=== PATIENT | female | born 1965 ===

== ENCOUNTER 2022-01-24 09:12 | Emergency (ER) | payer OTHER, SELFPAY ==
--- NOTE | ~2022-01-24 | XR_ITS ---
EXAMINATION: XR CHEST CLINICAL INFORMATION: Cough, wheezing. COMPARISON: None TECHNIQUE: 2 views of the chest were obtained. FINDINGS: No significant abnormality is noted involving the heart, lungs, mediastinum, bony thorax or soft tissues. XR/XR chest 2V IMPRESSION: No acute cardiopulmonary process.
[2022-01-24 09:15] VITALS: BP 154/91; PULSE 114; RESP 24; TEMP 36.1; O2SAT 95; BMI 36.9
[2022-01-24 09:27] LABS: MANUAL DIFF FLAG NO
[2022-01-24 09:30] LABS: Basophils Absolute Auto 0.1 X10*3/uL (0.0-0.2); Basophils Percent Auto 0.7 % (0-2); Eosinophils Absolute Auto 0.6 X10*3/uL (0.0-0.4); Eosinophils Percent Auto 6.7 % (0-4); Hematocrit 46.9 % (37.0-47.0); Hemoglobin 15.7 g/dl (12.0-16.0); Imm Gran Abs Auto 0.02 X10*3/uL (0.00-0.03); Imm Gran Pct Auto 0.2 % (0.0-0.4); Lymphocytes Percent Auto 33.5 % (20-40); Mean Corpuscular HGB Conc 33.5 g/dl (31.0-35.0); Mean Corpuscular Volume 83.6 fL (80.0-98.0); Mean Platelet Volume 10.7 fL (9.4-12.3); Monocytes Percent Auto 10.7 % (2-11); Neutrophils Absolute Auto 4.3 x10*3/uL (2.0-8.3); Neutrophils Percent Auto 48.2 % (45-73); Platelet Count 201 X10*3/uL (160-400); Red Blood Count 5.61 X10*6/uL (4.20-5.50); Red Cell Distribution Width 14.9 % (11.0-16.0)
[2022-01-24 10:00] LABS: Anion Gap 18 (12-20); Calcium 9.6 mg/dL (8.4-10.2); Carbon Dioxide 20 mmol/L (22-29); Chloride 105 mmol/L (96-108); Creatinine Clr Calc Pharmacy 84.5; Estimated Glomerular Filt Rate > 60; Glucose Random 130 mg/dL (60-115); Potassium 3.9 mmol/L (3.3-5.1); Sodium 139 mmol/L (135-145)
[2022-01-24 10:01] LABS: Influenza A Negative (Negative); Influenza B2 Negative (Negative)
[2022-01-24 10:34] LABS: Blood Urea Nitrogen 12 mg/dL (9-16)
--- OUTSIDE RECORDS SUMMARY | 2022-01-24 13:56 | XMS_ITS | Continuity of Care Document ---
:1965 Author Organization [facility] Address [address] [place] [address]- Care Team Providers Name Role Phone London BORGES, Kodak Oh Primary Care Physician Encounter [facility] [place] [facility] Date(s): 01/27/21 - 02/26/21 [facility] [address] [place], [place] [address] Allergies, Adverse Reactions, Alerts Substance Reaction Severity Status doxycycline1 hives Active Spiriva Active traMADol swelling and hives Active 1hives Immunizations Given and Recorded Vaccine Date Status Refusal Reason influenza virus vaccine, inactivated1 02/04/21 Given influenza virus vaccine, inactivated 12/24/19 Recorded influenza virus vaccine, inactivated 01/01/13 Given SARS-CoV-2 (COVID-19) mRNA-1273 vaccine 07/12/20 Recorded SARS-CoV-2 (COVID-19) mRNA-1273 vaccine 06/04/20 Recorded zoster vaccine, inactivated 02/06/20 Recorded pneumococcal 13-valent vaccine 02/02/16 Recorded pneumococcal 23-valent vaccine 01/17/14 Recorded Fluzone (oldterm)2 01/05/14 Given tetanus/diphtheria/pertussis, acel(Tdap)3 02/07/13 Given tetanus/diphtheria/pertussis, acel(Tdap) 06/21/11 Recorde d hepatitis B adult vaccine 06/21/11 Recorded 1Result Comment: [facility]: [phone] Note: CDC info [id number] Note: vis given 08/02/06 Medications Acetaminophen 0 Refills, Maintenance, 08/08/19 8:53:00 EDT Start Date: 08/08/19 Status: OrderedAdult pull ups, medium Adult pull ups, medium, See Instructions, # 5 pack/packet, Refills 11, Tot. Refills 11, Maintenance,To be used during day and night for stress urinary incontinence (12 pulls up per package), 10/04/20 15:03:00 EDT, Supply, 153, cm, 10/04/20 14:34:00 E... Start Date: 10/04/20 Status: Orderedalbuterol 0.083% inhalation solution 3 mL = 2.5 mg, Inhalation, Every 6 hours, PRN for wheezing, # 60 each, 1 Refills, Maintenance, Solution, 3 mL Inhalation Every 6 hours,PRN:for wheezing Start Date: 02/21/13 Status: Orderedatorvastatin 20 mg oral tablet 1 tablet = 20 mg, By Mouth, Daily at bedtime, # 90 tablet, 0 Refills, Maintenance, 08/17/20 13:08:00EDT, Tablet, Partial fill upon patient request if the prescription is for a schedule II opioid drug. Start Date: 08/17/20 Status: OrderedBreo Ellipta 200 mcg-25 mcg/inh inhalation powder 1 puffs, Inhalation, Daily, 0 Refills, Maintenance, 05/25/18 9:49:19 EST, Powder Start Date: 05/25/18 Status: Orderedcalcium-vitamin D 600 mg-400 intl units oral tablet 1 tablet, By Mouth, 2 times a day, # 60 tablet, 5 Refills, Maintenance, 10/20/20 10:23:00 EDT, Tablet, [place], [place] - [id number], Partial fill upon patient request if the prescription is for a schedule II opioid drug., 1 tablet By... Start Date: 10/20/20 Status: OrderedcloNIDine 0.1 mg oral tablet TAKE 1 TO 2 TABLETS BY MOUTH 2 (two) times a day NEEDED Start Date: 05/25/18 Status: Ordereddiazepam 5 mg oral tablet See Instructions, 1 tab PO 1 hr. prior to procedure. May repeat x 1 on arrival to [facility] if needed., # 2 tablet, Refills 0, Tot. Refills 0, Maintenance, 11/15/20 12:49:00 EDT, Instructions Replace Required Details, Route to Pharmacy Electronically, [place]... Start Date: 11/15/20 Status: OrderedhydrALAZINE 25 mg oral tablet 25 mg, 1, tablet, By Mouth, 2 times a day, PRN, # 60 tablet, Refills 0, Maintenance, elevated BP, 08/17/20 13:08:00 EDT, Partial fill upon patient request if the prescription is for a schedule II opioid drug. Start Date: 08/17/20 Status: Orderedhydrochlorothiazide 25 mg oral tablet 25 mg, 1, tablet, By Mouth, Daily, # 30 tablet, Refills 0, Maintenance, 08/17/20 13:08:00 EDT, Partial fill upon patient request if the prescription is for a schedule II opioid drug. Start Date: 08/17/20 Status: OrderedIncruse Ellipta 62.5 mcg/inh inhalation powder 1 each, Inhalation, Every 24 hours, doses should be taken at least 24 hours apart, # 30 each, 0 Refills, Maintenance, 08/17/20 13:09:00 EDT, Powder, Partial fill upon patient request if the prescription is for a schedule II opioid drug. Start Date: 08/17/20 Status: Orderedlevothyroxine 150 mcg (0.15 mg) oral tablet 1 tablet = 150 mcg, By Mouth, Daily before breakfast, dose decrease, # 90 tablet, 1 Refills, Maintenance, 02/24/21 22:43:00 EST, Tablet, [facility] [id number], Partial fill upon patient request if the prescription is for a cooper... Start Date: 02/24/21 Status: Orderedlidocaine 4% topical film 1 patch, Topically, 2 times a day, # 12 each, 0 Refills, Maintenance, 09/28/20 13:53:00 EDT, Film, [facility] [id number], Partial fill upon patient request if the prescription is for a schedule II opioid drug., 1 patch Topical... Start Date: 09/28/20 Status: Orderedloratadine 10 mg oral tablet 10 mg, 1, tablet, By Mouth, Daily, # 30 tablet, Refills 5, Tot. Refills 5, Maintenance, 01/27/21 13:23:00 EST, Route to Pharmacy Electronically, [facility], [place] - [id number], Partial fill upon patient request if the prescription is f... Start Date: 01/27/21 Status: OrderedMetoprolol Tartrate 50 mg oral tablet 1 tablet = 50 mg, By Mouth, 2 times a day, dose increase, # 180 tablet, 1 Refills, Maintenance, 09/14/20 8:52:00 EDT, Tablet, [facility] [id number], Partial fill upon patient request if the prescription is for a schedule II op... Start Date: 09/14/20 Status: OrderedNuLYTELY with Flavor Packs oral powder for reconstitution See Instructions, Drink 240mL every 15-20 minutes until first half is gone. Repeat 6 hours prior to procedure., # 4,000 mL, 0 Refills, Maintenance, 10/21/20 12:57:00 EDT, [facility] [id number], Drink 240mL every 15-20 minutes... Start Date: 10/21/20 Status: Orderedomega-3 polyunsaturated fatty acids 1000 mg oral capsule 1 capsule = 1,000 mg, By Mouth, 2 times a day, 0 Refills, Maintenance, 08/17/20 13:09:00 EDT, Capsule, Partial fill upon patient request if the prescription is for a schedule II opioid drug. Start Date: 08/17/20 Status: Orderedomeprazole 20 mg oral delayed release tablet 1 tablet = 20 mg, By Mouth, Daily, # 30 tablet, 0 Refills, Maintenance, 08/17/20 13:08:00 EDT, CR Tablet, Partial fill upon patient request if the prescription is for a schedule II opioid drug. Start Date: 08/17/20 Status: Orderedondansetron 4 mg oral tablet, disintegrating DISSOLVE 1 TABLET ON TONGUE EVERY 8 HOURS NEEDED FOR NAUSEA Start Date: 08/17/20 Status: OrderedoxyCODONE 10 mg oral tablet 1 tablet = 10 mg, By Mouth, 2 times a day, PRN as needed for pain, # 56 tablet, 0 Refills, Maintenance, 01/03/21 16:09:00 EDT, Tablet, [facility] [id number], Partial fill upon patient request if the prescription is for a sched... Start Date: 01/03/21 Status: OrderedoxyCODONE 10 mg oral tablet See Instructions, TAKE ONE TABLET BY MOUTH two (2) times a day NEEDED FOR PAIN, # 56 tablet, 0 Refills, Maintenance, 01/31/21 17:09:00 EST, [facility] [id number], 153, cm, 01/25/21 14:26:00 EST, Height, 85.1, kg, 10/28/20... Start Date: 01/31/21 Status: OrderedP-5 Ketamine 10%,baclofen2%, cyclobenzaprine2%,Diclofenac3%,Idcpgjoykk36%,Bupivacaine2% topicalcrea P-5 Ketamine 10%,baclofen2%, cyclobenzaprine2%,Diclofenac3%,Nudsjsqmjy85%,Bupivacaine2% topicalcream, See Instructions, # 240 Gm, Refills 1, Tot. Refills 1, Maintenance, 1-3 gms (pumps) to affected area 3-4 times a day, 10/27/19 14:52:00 EDT, [facility]... Start Date: 10/27/19 Status: Orderedpregabalin 50 mg oral capsule See Instructions, TAKE ONE CAPSULE BY MOUTH EVERY MORNING AND TAKE THREE CAPSULES BY MOUTH EVERY EVENING, # 120 capsule, 0 Refills, Maintenance, 01/19/21 8:26:00 EDT, [facility] [id number], 153, cm, 11/19/20 8:43:00 EDT, [facility]... Start Date: 01/19/21 Status: Orderedpregabalin 50 mg oral capsule See Instructions, 1 cap PO qAM, 4 caps PO qHS. Dose increase. Please fill when patient next due., # 150 capsule, 1 Refills, Maintenance, 02/01/21 9:05:00 EST, [facility] [id number], 153, cm, 02/01/21 8:58:00 EST, Height, 85.1,... Start Date: 02/01/21 Status: OrderedProAir HFA Inhalation, 4 times a day, 0 Refills, Maintenance Start Date: 08/17/11 Status: OrderedSingulair 10 mg oral tablet 10 mg, 1, tablet, By Mouth, Daily before dinner, # 90 tablet, Refills 0, Tot. Refills 0, Maintenance, 10/28/20 17:37:00 EDT, Route to Pharmacy Electronically, [facility] [id number], 153, cm, 10/28/20 14:26:00 EDT, Height, 85.1... Start Date: 10/28/20 Stop Date: 01/26/21 Status: OrderedVitamin D3 50,000 intl units oral capsule 1 capsule = 50,000 International_Units, By Mouth, Every week, 0 Refills, Maintenance, 01/05/14 15:49:29 Start Date: 01/05/14 Status: OrderedWarm Air Humidifier Warm Air Humidifier, See Instructions, # 1 each, Refills 0, Tot. Refills 0, Maintenance, to be used nightly, 02/04/21 10:12:00 EST, Supply Start Date: 02/04/21 Status: Ordered Problem List Condition Effective Dates Status Health Status Informant Anxiety(Confirmed) Active Asthma(Confirmed)1 Active Bipolar disease, chronic(Confirmed) Active Chest wall pain, chronic(Confirmed)2 Active Depression(Confirmed) Active Stress incontinence of Active urine(Confirmed) GERD (gastroesophageal reflux Active disease)(Confirmed) Gadiel's thyroiditis(Confirmed) Active Hyperlipidemia(Confirmed) Active Hypertensive disorder(Confirmed) Active Obese class II(Confirmed) Active Osteoporosis(Confirmed)3 Active Severe persistent asthma(Confirmed) Active Sleep apnea-[facility] 16 cm(Confirmed) Active Vitamin D deficiency(Confirmed) Active 1pos bronchial challenge 19925c/p surgery [id number] 09/2020 Social History Social History Type Response Smoking Status 5-9 cigarettes (between 1/4 to 1/2 pack)/day in last 30 days; Interested in cessation: Yes; Other: was using the gum , didnt like the taste and only worked briefly. Using nicotine lollipops now though from [place].; entered on: 08/17/20 Sex
--- OUTSIDE RECORDS SUMMARY | 2022-01-24 13:56 | XMS_ITS | Continuity of Care Document ---
:1965 Author Organization [facility] Address [address] [place] [address]- Care Team Providers Name Role Phone Kodak Callahan MD Primary Care Physician Encounter [facility] Date(s): 08/16/21 - 08/23/21 [facility] [address] [place], [place] [address] Encounter Diagnosis Asthma exacerbation (Discharge Diagnosis) - 08/16/21 Abdominal pain (Discharge Diagnosis) - 08/16/21 Attending Physician: Kodak Callahan MD Allergies, Adverse Reactions, Alerts Substance Reaction Severity Status doxycycline1 hives Active Spiriva Active traMADol swelling and hives Active 1hives Immunizations Given and Recorded Vaccine Date Status Refusal Reason SARS-CoV-2 (COVID-19) mRNA-1273 vaccine 04/05/21 Given SARS-CoV-2 (COVID-19) mRNA-1273 vaccine 07/12/20 Recorded SARS-CoV-2 (COVID-19) mRNA-1273 vaccine 06/04/20 Recorded influenza virus vaccine, inactivated1 02/04/21 Given influenza virus vaccine, inactivated 12/24/19 Recorded influenza virus vaccine, inactivated 01/01/13 Given zoster vaccine, inactivated 02/06/20 Recorded pneumococcal 13-valent vaccine 02/02/16 Recorded pneumococcal 23-valent vaccine 01/17/14 Recorded Fluzone (oldterm)2 01/05/14 Given tetanus/diphtheria/pertussis, acel(Tdap)3 02/07/13 Given tetanus/diphtheria/pertussis, acel(Tdap) 06/21/11 Recorde d hepatitis B adult vaccine 06/21/11 Recorded 1Result Comment: [facility]: [phone] Note: CDC info [id number] Note: vis given 08/02/06 Medications acetaminophen 325 mg oral capsule 2 capsule = 650 mg, By Mouth, Every 4 hours, PRN as needed for fever, # 90 capsule, 0 Refills, Acute07/28/22 22:05:00 EDT, 07/27/21 22:04:00 EDT, Capsule, [facility] [place], [place] - [phone], Partial fill upon patient request if the prescr... Start Date: 07/27/21 Stop Date: 07/28/22 Status: Orderedalbuterol 0.083% inhalation solution 3 mL [...] a day, # 60 tablet, 5 Refills, [facility], 30, TAKE ONE TABLET BY MOUTH two (2) times a day, 153, cm, 02/15/21 16:52:00 EST, Height, 89.4, kg, 02/15/21 16:56:00 EST, Dry Weight Start Date: 04/18/21 Status: OrderedcloNIDine 0.1 mg oral tablet TAKE 1 TO 2 TABLETS BY MOUTH 2 (two) times a day NEEDED Start Date: 05/25/18 Status: OrderedhydrALAZINE 25 mg oral tablet 25 mg, 1, tablet, By Mouth, Every 8 hours, PRN, Maintenance, Blood Pressure, 07/27/21 16:44:00 EDT, Partial fill upon patient request if the prescription is for a schedule II opioid drug. Start Date: 07/27/21 Status: Orderedhydrochlorothiazide 25 mg oral tablet 25 mg, 1, tablet, By Mouth, Daily, # 30 tablet, Refills 0, Maintenance, 08/17/20 13:08:00 EDT, Partial fill upon patient request if the prescription is for a schedule II opioid drug. Start Date: 08/17/20 Status: Orderedibuprofen 200 mg oral tablet 400 mg, 2, tablet, By Mouth, Every 4 hours, PRN, # 120 tablet, Refills 0, Tot. Refills 0, Acute 07/28/22 22:05:00 EDT, for pain, 07/27/21 22:03:00 EDT, Route to Pharmacy Electronically, [facility] [place], [place] - [phone], Partial fill upon... Start Date: 07/27/21 Stop Date: 07/28/22 Status: OrderedIncruse Ellipta 62.5 mcg/inh inhalation powder 1 each, Inhalation, Every 24 hours, doses should be taken at least 24 hours apart, # 30 each, 0 Refills, Maintenance, 08/17/20 13:09:00 EDT, Powder, Partial fill upon patient request if the prescription is for a schedule II opioid drug. Start Date: 08/17/20 Status: Orderedlevothyroxine 150 mcg (0.15 mg) oral tablet 1 tablet, By Mouth, Daily before breakfast, DOSE decrease, # 90 tablet, 0 Refills, [facility], 155, cm, 08/16/21 13:46:00 EDT, Height, 90, kg, 07/27/21 21:54:00 EDT, Dry Weight Start Date: 08/23/21 Status: Orderedloratadine 10 mg oral tablet 1, tablet, By Mouth, Daily, # 30 tablet, Refills 5, Route to Pharmacy Electronically, [facility], 155, cm, 07/27/21 21:54:00 EDT, Height, 90, kg, 07/27/21 21:54:00 EDT, Dry Weight Start Date: 08/07/21 Status: OrderedMetoprolol Tartrate 50 mg oral tablet 1 tablet, By Mouth, 2 times a day, DOSE INCREASE, # 180 tablet, 1 Refills, [facility], 153, cm,02/15/21 16:52:00 EST, Height, 89.4, kg, 02/15/21 16:56:00 EST, Dry Weight Start Date: 03/21/21 Status: OrderedMiraLax oral powder for reconstitution = 17 Gm, By Mouth, 2 times a day, dissolve in water before taking titrate to 1-2 smooth bowel movements daily without straining, # 527 Gm, 1 Refills, Acute 09/14/21 13:27:00 EDT, 07/15/21 13:26:00 EDT,REC Powder, [place], [place]... Start Date: 07/15/21 Stop Date: 09/14/21 Status: Orderedomega-3 polyunsaturated fatty acids 1000 mg [...] 08/17/20 Status: OrderedoxyCODONE 10 mg oral tablet See Instructions, 1 tab PO qAM, 0.5 tab PO q afternoon, 1 tab PO qPM, # 70 tablet, 0 Refills, Maintenance, 08/08/21 19:03:00 EDT, [facility] [id number], taking increased dose due to injury, checked masspat, 08/09/21, 155, cm,... Start Date: 08/08/21 Status: Orderedpregabalin 50 mg oral capsule See Instructions, TAKE TWO CAPSULES BY MOUTH EVERY MORNING AND TAKE 5 CAPSULES BY MOUTH EVERY NIGHT AT BEDTIME dose increase, # 196 capsule, 1 Refills, Maintenance, 07/13/21 13:43:00 EDT, [facility] [id number], checked mass... Start Date: 07/13/21 Status: OrderedProAir HFA Inhalation, 4 times a day, 0 Refills, Maintenance Start Date: 08/17/11 Status: OrderedRight elbow padded sleeve Right elbow padded sleeve, See Instructions, # 1 each, Refills 0, Tot. Refills 0, Maintenance, To beworn during the day, 04/25/21 11:35:00 EST, Supply Start Date: 04/25/21 Status: OrderedSingulair 10 mg oral tablet 10 mg, 1, tablet, By Mouth, Daily before dinner, # 90 tablet, Refills 0, Tot. Refills 0, Maintenance, 10/28/20 17:37:00 EDT, Route to Pharmacy Electronically, [place], [place] - [id number], 153, cm, 10/28/20 14:26:00 EDT, Height, 85.1... [...] Health Status Informant Anxiety(Confirmed) Active Asthma(Confirmed)1 Active COPD with asthma(Confirmed) Active Bipolar disease, chronic(Confirmed) Active Chest wall pain, chronic(Confirmed)2 Active Depression(Confirmed) Active Stress incontinence of Active urine(Confirmed) GERD (gastroesophageal reflux Active disease)(Confirmed) Gadiel's thyroiditis(Confirmed) Active Hyperlipidemia(Confirmed) Active Hypertensive disorder(Confirmed) Active Obese class II(Confirmed) Active Onychomycosis(Confirmed) Active Osteoporosis(Confirmed)3 Active Severe persistent asthma(Confirmed) Active Sleep apnea-[facility] 16 cm(Confirmed) Active Uterine fibroid(Confirmed) Active Vitamin D deficiency(Confirmed) Active 1pos bronchial challenge [id number]/p surgery [id number] 09/2020 Diagnosis Diagnosis Type Effective Dates Health Clinical Infor formerly [facility] Status Service Asthma exacerbation Discharge 08/16/21 Diagnosis Abdominal pain Discharge 08/16/21 Diagnosis Vital Signs Most recent to oldest [Reference Range]: 1 Height 155 cm (08/16/21 1:46 PM) Oxygen Saturation [94-100 %] 98 % (08/16/21 1:46 PM) Pulse Rate [55-90 bpm] 105 bpm *H* (08/16/21 1:46 PM) Blood Pressure [90-138/55-84 mm Hg] 147/88 mm Hg *H* (08/16/21 1:46 PM) Temperature [96.8-100.4 DegF] 97.3 DegF (08/16/21 1:46 PM) Mode of Delivery (Oxygen) Room air (08/16/21 1:46 PM) Blood pressure sites Arm, left (08/16/21 1:46 PM) Social History Social History Type Response Smoking Status 5-9 cigarettes (between 1/4 to 1/2 pack)/day in last 30 days; Interested in cessation: Yes; Other: was using the gum , didnt like the taste and only worked briefly. Using nicotine lollipops now though from [place].; entered on: 08/17/20 Sex
--- OUTSIDE RECORDS SUMMARY | 2022-01-24 13:56 | XMS_ITS | Continuity of Care Document ---
:1965 Author Organization [facility] Address [address] [place] [address]- Care Team Providers Name Role Phone London BORGES, Kodak Oh Primary Care Physician Encounter [facility] Date(s): 08/10/21 - 09/09/21 [facility] [address] [place], [place] [address] Allergies, Adverse Reactions, Alerts Substance Reaction Severity Status doxycycline1 hives Active traMADol swelling and hives Active Spiriva Active 1hives Immunizations Given and Recorded Vaccine [...] B adult vaccine 06/21/11 Recorded 1Result Comment: [facility]: [phone] Note: CDC info [id number] Note: vis given 08/02/06 Medications acetaminophen 325 mg oral capsule 2 capsule = 650 mg, By Mouth, Every 4 hours, PRN as needed for fever, # 90 capsule, 0 Refills, Acute07/28/22 22:05:00 EDT, 07/27/21 22:04:00 EDT, Capsule, [facility] [place], [place] - [phone], Partial fill upon patient request if the [...] day, # 60 tablet, 5 Refills, [facility], 30, TAKE ONE TABLET BY MOUTH [...] 07/27/21 22:03:00 EDT, Route to Pharmacy Electronically, [place], [place] - [phone], Partial fill upon... Start Date: 07/27/21 Stop [...] DOSE decrease, # 90 tablet, 0 Refills, [facility], 155, cm, 08/16/21 13:46:00 EDT, Height, 90, kg, 07/27/21 21:54:00 EDT, Dry Weight Start Date: 08/23/21 Status: Orderedloratadine 10 mg oral tablet 1, tablet, By Mouth, Daily, # 30 tablet, Refills 5, Route to Pharmacy Electronically, [facility], 155, cm, 07/27/21 21:54:00 EDT, Height, 90, kg, 07/27/21 21:54:00 EDT, Dry Weight Start Date: 08/07/21 Status: OrderedMetoprolol Tartrate 50 mg oral tablet 1 tablet, By Mouth, 2 times a day, DOSE INCREASE, # 180 tablet, 1 Refills, [facility], 153, cm,02/15/21 16:52:00 EST, Height, 89.4, kg, 02/15/21 16:56:00 EST, Dry Weight Start Date: 03/21/21 Status: OrderedMiraLax oral powder for reconstitution = 17 Gm, By Mouth, 2 times a day, dissolve in water before taking titrate to 1-2 smooth bowel movements daily without straining, # 527 Gm, 1 Refills, Acute 09/14/21 13:27:00 EDT, 07/15/21 13:26:00 EDT,REC Powder, [place], [place]... Start Date: 07/15/21 Stop Date: 09/14/21 [...] qPM, # 70 tablet, 0 Refills, Maintenance, 09/02/21 17:08:00 EDT, [place], [place] - [id number], taking increased dose due to injury, checked masspat, 09/06/21, 155, cm,... Start Date: 09/02/21 Status: Orderedpregabalin 50 mg oral capsule See Instructions, TAKE TWO CAPSULES BY MOUTH EVERY MORNING AND TAKE 5 CAPSULES BY MOUTH EVERY NIGHT AT BEDTIME dose increase, # 196 capsule, 1 Refills, Maintenance, 07/13/21 13:43:00 EDT, [place], [place] - [id number], checked mass... Start Date: 07/13/21 Status: OrderedProAir [...] 10/28/20 17:37:00 EDT, Route to Pharmacy Electronically, [place], [place] - [id number], 153, cm, 10/28/20 14:26:00 EDT, Height, 85.1... [...] Vitamin D deficiency(Confirmed) Active 1pos bronchial challenge /p surgery [id number] 09/2020 Social History Social History Type Response Smoking Status 5-9 cigarettes (between 1/4 to 1/2 pack)/day in last 30 days; Interested in cessation: Yes; Other: was using the gum , didnt like the taste and only worked briefly. Using nicotine lollipops now though from [place].; entered on: 08/17/20 Sex
--- OUTSIDE RECORDS SUMMARY | 2022-01-24 13:56 | XMS_ITS | Continuity of Care Document ---
:1965 Author Organization [facility] Address [address] [place] [address], [address] [place] [address]- Care Team Providers Name Role Phone London BORGES, Kodak Oh Primary Care Physician [facility]counter [facility] Date(s): 10/29/20 - 12/24/20 [facility] [address], [address] [place] [address]- Attending Physician: Not on Staff, Attending MD Referring Physician: [employer], Sheri Allergies, Adverse Reactions, Alerts Substance Reaction Severity Status doxycycline1 hives Active Spiriva Active traMADol swelling and hives Active 1hives Immunizations Given and Recorded Vaccine Date Status Refusal Reason SARS-CoV-2 (COVID-19) mRNA-1273 vaccine 07/12/20 Recorded SARS-CoV-2 (COVID-19) mRNA-1273 vaccine 06/04/20 Recorded zoster vaccine, inactivated 02/06/20 Recorded influenza virus vaccine, inactivated 12/24/19 Recorded influenza virus vaccine, inactivated 01/01/13 Given pneumococcal 13-valent vaccine 02/02/16 Recorded pneumococcal 23-valent vaccine 01/17/14 Recorded Fluzone (oldterm)1 01/05/14 Given tetanus/diphtheria/pertussis, acel(Tdap)2 02/07/13 Given tetanus/diphtheria/pertussis, acel(Tdap) 06/21/11 Recorde d hepatitis B adult vaccine 06/21/11 Recorded 1Admin Note: CDC info [id number] Note: vis given 08/02/06 Medications Acetaminophen 0 [...] 5 Refills, Maintenance, 10/20/20 10:23:00 EDT, Tablet, [place], [place] - [id number], Partial fill upon patient request if the [...] May repeat x 1 on arrival to [facility] if needed., # 2 tablet, Refills 0, [...] opioid drug. Start Date: 08/17/20 Status: Orderedlevothyroxine 175 mcg (0.175 mg) oral tablet 1 tablet = 175 mcg, By Mouth, Daily, Repeat TSH level in 6-8 weeks Dose decrease, # 30 tablet, 1 Refills, Maintenance, 11/18/20 12:51:00 EDT, Tablet, [facility] [id number], Partial fill upon patient request if the prescriptio... Start Date: 11/18/20 Status: Orderedlidocaine 4% topical film 1 patch, Topically, 2 times a day, # 12 each, 0 Refills, Maintenance, 09/28/20 13:53:00 EDT, Film, [facility] [id number], Partial fill upon patient request if the prescription is for a schedule II opioid drug., 1 patch Topical... Start Date: 09/28/20 Status: Orderedloratadine 10 mg oral tablet 10 mg, 1, tablet, By Mouth, Daily, # 30 tablet, Refills 1, Tot. Refills 1, Maintenance, 12/06/20 13:03:00 EDT, Route to Pharmacy Electronically, [facility] [id number], Partial fill upon patient request if the prescription is f... Start Date: 12/06/20 Status: OrderedLyrica 25 mg oral capsule 2 capsule = 50 mg, By Mouth, 3 times a day, 0 Refills, Maintenance, 11/19/20 8:47:00 EDT, Partial fill upon patient request if the prescription is for a schedule II opioid drug. Start Date: 11/19/20 Status: OrderedMetoprolol Tartrate 50 mg oral tablet 1 tablet = 50 mg, By Mouth, 2 times a day, dose increase, # 180 tablet, 1 Refills, Maintenance, 09/14/20 8:52:00 EDT, Tablet, [facility] [id number], Partial fill upon patient request if the prescription is for a schedule II op... Start Date: 09/14/20 Status: OrderedNuLYTELY with Flavor Packs oral powder for reconstitution See Instructions, Drink 240mL every 15-20 minutes until first half is gone. Repeat 6 hours prior to procedure., # 4,000 mL, 0 Refills, Maintenance, 10/21/20 12:57:00 EDT, [facility] [id number], Drink 240mL every 15-20 minutes... Start Date: [...] pain, # 56 tablet, 0 Refills, Maintenance, 12/06/20 13:04:00 EDT, Tablet, [facility] [id number], Partial fill upon patient request if the prescription is for a sched... Start Date: 12/06/20 Status: OrderedP-5 Ketamine 10%,baclofen2%, cyclobenzaprine2%,Diclofenac3%,Waorygjvxm65%,Bupivacaine2% topicalcrea P-5 Ketamine 10%,baclofen2%, cyclobenzaprine2%,Diclofenac3%,Mhrgdedqqf24%,Bupivacaine2% topicalcream, See Instructions, # 240 Gm, Refills 1, Tot. Refills 1, Maintenance, 1-3 gms (pumps) to affected area 3-4 times a day, 10/27/19 14:52:00 EDT, Compound... Start Date: 10/27/19 Status: Orderedpregabalin 50 mg oral capsule See Instructions, 1 cap PO qAM, 3 caps PO qPM, # 120 capsule, 1 Refills, Maintenance, 11/02/20 9:11:00 EDT, [facility] [id number], 153, cm, 10/28/20 14:26:00 EDT, Height, 85.1,kg, 10/28/20 14:26:00 EDT, Dry Weight Start Date: 11/02/20 Status: OrderedProAir HFA Inhalation, 4 times a day, 0 Refills, Maintenance Start Date: 08/17/11 Status: OrderedSingulair 10 mg oral tablet 10 mg, 1, tablet, By Mouth, Daily before dinner, # 90 tablet, Refills 0, Tot. Refills 0, Maintenance, 10/28/20 17:37:00 EDT, Route to Pharmacy Electronically, [facility] [id number], 153, cm, 10/28/20 14:26:00 EDT, Height, 85.1... Start Date: 10/28/20 Stop Date: 01/26/21 Status: OrderedVitamin D3 50,000 intl units oral capsule 1 capsule = 50,000 International_Units, By Mouth, Every week, 0 Refills, Maintenance, 01/05/14 15:49:29 Start Date: 01/05/14 Status: Ordered Problem List Condition Effective Dates Status Health Status Informant Anxiety(Confirmed) Active Asthma(Confirmed)1 Active Bipolar disease, chronic(Confirmed) Active Chest wall pain, chronic(Confirmed)2 Active Depression(Confirmed) Active Stress incontinence of Active urine(Confirmed) GERD (gastroesophageal reflux Active disease)(Confirmed) Gadiel's thyroiditis(Confirmed) Active Hyperlipidemia(Confirmed) Active Hypertensive disorder(Confirmed) Active Osteoporosis(Confirmed)3 Active Severe persistent asthma(Confirmed) Active Sleep apnea-[facility] 16 cm(Confirmed) Active Vitamin D deficiency(Confirmed) Active 1pos bronchial challenge /p surgery [id number] 09/2020 Social History Social History Type Response Smoking Status 5-9 cigarettes (between 1/4 to 1/2 pack)/day in last 30 days; Interested in cessation: Yes; Other: was using the gum , didnt like the taste and only worked briefly. Using nicotine lollipops now though from [place].; entered on: 08/17/20 Sex
--- OUTSIDE RECORDS SUMMARY | 2022-01-24 13:56 | XMS_ITS | Continuity of Care Document ---
:1965 Author Organization [facility] Address [address] [place] [address]- Care Team Providers Name Role Phone Kodak Callahan MD Primary Care Physician [place] [facility] [place](s): 12/16/21 - 12/23/21 [facility] [address] [place], [place] [address] Encounter Diagnosis Brachial plexus injury, right (Discharge Diagnosis) - 12/16/21 Tinea corporis (Discharge Diagnosis) - 12/16/21 Mass of right axilla (Discharge Diagnosis) - 12/16/21 Attending Physician: Kodak Callahan MD Allergies, Adverse Reactions, Alerts Substance Reaction Severity Status doxycycline1 hives Active amoxicillin Active Spiriva Active traMADol swelling and hives Active 1hives Immunizations Given and Recorded Vaccine Date Status Refusal Reason SARS-CoV-2 (COVID-19) mRNA-1273 vaccine 04/05/21 Given SARS-CoV-2 (COVID-19) mRNA-1273 vaccine 07/12/20 Recorded SARS-CoV-2 (COVID-19) mRNA-1273 vaccine 06/04/20 Recorded influenza virus vaccine, inactivated1 02/04/21 Given influenza virus vaccine, inactivated 12/24/19 Recorded influenza virus vaccine, inactivated 01/11/19 Recorded influenza virus vaccine, inactivated 12/19/17 Recorded influenza virus vaccine, inactivated 02/22/17 Recorded influenza virus vaccine, inactivated 12/03/15 Recorded influenza virus vaccine, inactivated 12/22/14 Recorded influenza virus vaccine, inactivated 01/17/14 Recorded influenza virus vaccine, inactivated 01/01/13 Given zoster vaccine, inactivated 02/06/20 Recorded pneumococcal 13-valent vaccine 02/02/16 Recorded pneumococcal 23-valent vaccine 01/17/14 Recorded Fluzone (oldterm)2 10/20/14 Given tetanus/diphtheria/pertussis, acel(Tdap)3 02/07/13 Given tetanus/diphtheria/pertussis, acel(Tdap) 06/21/11 Recorde d hepatitis B adult vaccine 06/21/11 Recorded 1Result Comment: [facility]: [id number] Note: CDC info [id number] Note: vis given 08/02/06 Medications acetaminophen 325 mg oral capsule 2 capsule = 650 mg, By Mouth, Every 4 hours, PRN as needed for fever, # 90 capsule, 0 Refills, Acute07/28/22 22:05:00 EDT, 07/27/21 22:04:00 EDT, Capsule, [facility] [place], [place] - [id number], Partial fill upon patient request if the [...] a day, # 60 tablet, 5 Refills, [facility], 30, TAKE ONE TABLET BY MOUTH two (2) times a day, 155, cm, 08/16/21 13:46:00 EDT, Height, 90, kg, 07/27/21 21:54:00 EDT, Dry Weight Start Date: 10/19/21 Status: OrderedcloNIDine 0.1 mg oral tablet TAKE 1 TO 2 TABLETS BY MOUTH 2 (two) times a day NEEDED Start Date: 05/25/18 Status: Orderedclotrimazole 1% topical cream 1 application, Topically, 2 times a day, use until 2 days after rash resolves, # 30 Gm, 1 Refills, Acute 01/15/22 11:23:00 EDT, 12/16/21 11:23:00 EDT, Cream, [facility] [id number], Partial fill upon patient request if the pres... Start Date: 12/16/21 Stop Date: 01/15/22 Status: OrderedhydrALAZINE 25 mg oral tablet 25 [...] 07/27/21 22:03:00 EDT, Route to Pharmacy Electronically, [facility] [id number], Partial fill upon... Start Date: 07/27/21 Stop [...] DOSE decrease, # 90 tablet, 0 Refills, Maintenance, 11/23/21 14:02:00 EDT, [facility], 155, cm, 11/10/21 8:02:00 EDT, Height, 90, kg, 07/27/21 21:54:00 EDT, Dry Weight Start Date: 11/23/21 Status: Orderedloratadine 10 mg oral tablet 1, tablet, By Mouth, Daily, # 30 tablet, Refills 5, Route to Pharmacy Electronically, [facility], 155, cm, 07/27/21 21:54:00 EDT, Height, 90, kg, 07/27/21 21:54:00 EDT, Dry Weight Start Date: 08/07/21 Status: OrderedMetoprolol Tartrate 50 mg oral tablet 1 tablet, By Mouth, 2 times a day, DOSE INCREASE, # 180 tablet, 1 Refills, [facility], 153, cm,02/15/21 16:52:00 EST, Height, 89.4, kg, 02/15/21 16:56:00 EST, Dry Weight Start Date: 03/21/21 Status: OrderedMiraLax oral powder for reconstitution = 17 Gm, By Mouth, 2 times a day, dissolve in water before taking titrate to 1-2 smooth bowel movements daily without straining, # 527 Gm, 1 Refills, Maintenance, 11/29/21 8:47:00 EDT, REC Powder, [facility] [id number], Par... Start Date: 11/29/21 Status: OrderedNarcan 4 mg/0.1 mL nasal spray See Instructions, 4 mg intranasally for opiate overdose may repeat every 2 to 3 minutes until patient responds, # 2 each, 1 Refills, Soft Stop, 12/15/21 14:41:00 EDT, [facility] [id number], Partial fill upon patient reque... Start Date: 12/15/21 Status: Orderedomega-3 polyunsaturated fatty acids 1000 mg [...] 1 tablet = 10 mg, By Mouth, Every 8 hours, PRN Pain , Severe, dose increase checked masspat, # 84 tablet, 0 Refills, Maintenance, 12/07/21 10:22:00 EDT, [facility] [id number], taking increased dose due to injury, checked ma... Start Date: 12/07/21 Status: Orderedpregabalin 50 mg oral capsule See Instructions, TAKE TWO CAPSULES BY MOUTH EVERY MORNING AND TAKE 5 CAPSULES BY MOUTH EVERY NIGHT AT BEDTIME checked masspat, # 196 capsule, 1 Refills, Maintenance, 10/25/21 13:12:00 EDT, [facility] [id number], 155, cm, 0... Start Date: 10/25/21 Status: OrderedProAir HFA Inhalation, 4 times a [...] 10/28/20 17:37:00 EDT, Route to Pharmacy Electronically, [facility] [id number], 153, cm, 10/28/20 14:26:00 EDT, Height, 85.1... [...] Date: 02/04/21 Status: Ordered Problem List Condition Confirmation Course Effective Dates Status Health I nformant Status Anxiety Confirmed Active Asthma1 Confirmed Active COPD with asthma Confirmed Active Bipolar disease, Confirmed Active chronic Chest wall pain, Confirmed Active chronic2 Depression Confirmed Active Stress incontinence Confirmed Active of urine GERD Confirmed Active (gastroesophageal reflux disease) Gadiel's Confirmed Active thyroiditis Hyperlipidemia Confirmed Active Hypertensive disorder Confirmed Active Obese class II Confirmed Active Onychomycosis Confirmed Active Osteoporosis3 Confirmed Active Severe persistent Confirmed Active asthma Sleep apnea-[facility] Confirmed Active 16 cm Uterine fibroid Confirmed Active Vitamin D deficiency Confirmed Active 1pos bronchial challenge /p surgery [id number] 09/2020 Diagnosis Diagnosis Type Effective Dates Health Status Clinical In formant Service Brachial plexus Discharge 12/16/21 injury, right Diagnosis Tinea corporis Discharge 12/16/21 Diagnosis Mass of right Discharge 12/16/21 axilla Diagnosis Vital Signs Most recent to oldest [Reference Range]: 1 Height 155 cm (12/16/21 11:03 AM) Weight 90.7 kg (12/16/21 11:03 AM) Oxygen Saturation [94-100 %] 100 % (12/16/21 11:03 AM) Pulse Rate [55-90 bpm] 80 bpm (12/16/21 11:03 AM) Body Mass Index [18.5-24.99 kg/m2] 37.75 kg/m2 *>HHI* (12/16/21 11:03 AM) Blood Pressure [90-138/55-84 mm Hg] 125/86 mm Hg (12/16/21 11:03 AM) Temperature [96.8-100.4 DegF] 96.6 DegF *L* (12/16/21 11:03 AM) Blood pressure sites Arm, left (12/16/21 11:03 AM) Temperature Route Temporal (12/16/21 11:03 AM) Dry Weight 90.7 kg (12/16/21 11:03 AM) Weight Obtained Via Standing scale (12/16/21 11:03 AM) Social History Social History Type Response Smoking Status 5-9 cigarettes (between 1/4 to 1/2 pack)/day in last 30 days; Interested in cessation: Yes; Other: was using the gum , didnt like the taste and only worked briefly. Using nicotine lollipops now though from [place].; entered on: 08/17/20 Sex Patient Care team information PersonnelName: London BORGES, Kodak Oh Address: Address: [address] [place], [place] [address]
--- OUTSIDE RECORDS SUMMARY | 2022-01-24 13:56 | XMS_ITS | Continuity of Care Document ---
:[address] [facility] Address [address] [place] [address]- Care Team Providers Name Role Phone London BORGES, oKdak Oh Primary Care Physician [facility] Date[facility]s): 12/14/21 - 01/13/22 [facility] [address] [place], [place] [address] Allergies, Adverse Reactions, Alerts Substance Reaction Severity Status doxycycline1 hives Active Spiriva Active traMADol swelling and hives Active amoxicillin Active 1hives Immunizations Given and Recorded Vaccine [...] B adult vaccine 06/21/11 Recorded 1Result Comment: [facility]: [id number] Note: [facility] info [id number] Note: vis given 08/02/06 Medications acetaminophen 325 mg oral capsule 2 capsule = 650 mg, By Mouth, Every 4 hours, PRN as needed for fever, # 90 capsule, 0 Refills, Acute07/28/22 22:05:00 EDT, 07/27/21 22:04:00 EDT, Capsule, [facility] - [place], [place] - [id number], Partial fill upon patient request if the [...] a day, # 60 tablet, 5 Refills, [facility], 30, TAKE ONE TABLET [...] until 2 days after rash resolves, # 60 Gm, 1 Refills, Acute 02/26/22 15:46:00 EST, 01/15/22 11:23:00 EDT, Cream, [facility] [place] [facility] [place], [place] - [id number], Partial fill upon patient request if the pres... Start Date: 01/15/22 Stop Date: 02/26/22 Status: OrderedhydrALAZINE 25 mg oral tablet 25 [...] tablet, 0 Refills, Maintenance, 11/23/21 14:02:00 EDT, [facility] [place], 155, cm, 11/10/21 8:02:00 EDT, Height, 90, kg, 07/27/21 21:54:00 EDT, Dry Weight Start Date: 11/23/21 Status: Orderedloratadine 10 mg oral tablet 1, tablet, By Mouth, Daily, # 30 tablet, Refills 5, Route to Pharmacy Electronically, [facility] [place], 155, cm, 07/27/21 21:54:00 EDT, Height, 90, kg, 07/27/21 21:54:00 EDT, Dry Weight Start Date: 08/07/21 Status: OrderedMetoprolol Tartrate 50 mg oral tablet 1 tablet, By Mouth, 2 times a day, DOSE INCREASE, # 180 tablet, 1 Refills, [facility] [place], 153, cm,02/15/21 16:52:00 EST, Height, 89.4, kg, 02/15/21 16:56:00 EST, Dry Weight Start Date: 03/21/21 Status: OrderedMiraLax oral powder for reconstitution = 17 Gm, By Mouth, 2 times a day, dissolve in water before taking titrate to 1-2 smooth bowel movements daily without straining, # 527 Gm, 1 Refills, Maintenance, 11/29/21 8:47:00 EDT, REC Powder, [facility] [id number], Par... Start Date: 11/29/21 Status: OrderedNarcan 4 mg/0.1 mL nasal spray See Instructions, 4 mg intranasally for opiate overdose may repeat every 2 to 3 minutes until patient responds, # 2 each, 1 Refills, Soft Stop, 12/15/21 14:41:00 EDT, [facility] [id number], Partial fill upon patient reque... Start Date: 12/15/21 Status: Orderedomeprazole 20 mg oral delayed release [...] Every 8 hours, PRN Pain , Severe, checked masspat, # 84 tablet, 0 Refills, Maintenance, 01/03/22 17:25:00 EDT, [facility] [id number], taking increased dose due to injury, checked masspat, 01/04/22,... Start Date: 01/03/22 Status: Orderedpregabalin 50 mg oral capsule See Instructions, TAKE TWO CAPSULES BY MOUTH EVERY MORNING AND TAKE 5 CAPSULES BY MOUTH EVERY NIGHT AT BEDTIME checked masspat, # 196 capsule, 1 Refills, Maintenance, 10/25/21 13:12:00 EDT, [facility] [id number], 155, cm, 0... Start Date: 10/25/21 Status: [...] 10/28/20 17:37:00 EDT, Route to Pharmacy Electronically, [place], [place] - [id number], 153, cm, 10/28/20 14:26:00 EDT, Height, 85.1... [...] Active Severe persistent Confirmed Active asthma Sleep apnea-[facility] Confirmed Active 16 cm Uterine fibroid Confirmed Active Vitamin D deficiency Confirmed Active 1pos bronchial challenge /p surgery [id number] 09/2020 Social History Social History Type Response Smoking Status 5-9 cigarettes (between 1/4 to 1/2 pack)/day in last 30 days; Interested in cessation: Yes; Other: was using the gum , didnt like the taste and only worked briefly. Using nicotine lollipops now though from [place].; entered on: 08/17/20 Sex Patient Care team information PersonnelName: Kodak Callahan MD Address: Address: [address] [place] [address]-
--- OUTSIDE RECORDS SUMMARY | 2022-01-24 13:56 | XMS_ITS | Continuity of Care Document ---
:1965 Author Organization [facility] Address [address] [place] [address]- Care Team Providers Name Role Phone Sarah Sanderson Primary Care Physician [place] [facility] [place] 01/24/20 [facility] [address] [place] [id number] Allergies, Adverse Reactions, Alerts Substance Reaction Severity Status doxycycline1 hives Active Spiriva Active traMADol swelling and hives Active 1hives Immunizations Given and Recorded Vaccine Date Status Refusal Reason Fluzone (oldterm)1 01/05/14 Given tetanus/diphtheria/pertussis, acel(Tdap)2 02/07/13 Given influenza virus vaccine, inactivated 01/01/13 Given 1Admin Note: CDC info [id number] Note: vis given 08/02/06 Medications Acetaminophen 0 Refills, Maintenance, 08/08/19 8:53:00 EDT Start Date: 08/08/19 Status: Orderedalbuterol 0.083% inhalation solution 3 mL = 2.5 mg, Inhalation, Every 6 hours, PRN for wheezing, # 60 each, 1 Refills, Maintenance, Solution, 3 mL Inhalation Every 6 hours,PRN:for wheezing Start Date: 02/21/13 Status: OrderedBenadryl 25 mg oral capsule 1 capsule = 25 mg, By Mouth, 3 times a day, PRN for itching, may cause drowsiness, # 30 capsule, 1 Refills, Maintenance, Capsule, 1 capsule By Mouth 3 times a day,PRN:for itching,Instr:may cause drowsiness Start Date: 02/21/13 Status: OrderedBreo Ellipta 200 mcg-25 mcg/inh inhalation powder 1 puffs, Inhalation, Daily, 0 Refills, Maintenance, 05/25/18 9:49:19 EST, Powder Start Date: 05/25/18 Status: Orderedbudesonide-formoterol 160 mcg-4.5 mcg/inh inhalation aerosol with adapter 2, puffs, Inhalation, 2 times a day, # 6 Gm, Refills 2, Tot. Refills 2, Maintenance, 05/27/18 11:11:30 EDT, Inhaler, Route to Pharmacy Electronically, [id number], [facility]/pharmacy#[id number] Start Date: 05/27/18 Stop Date: 02/21/19 Status: OrderedcloNIDine 0.1 mg oral tablet TAKE 1 TO 2 TABLETS BY MOUTH 2 (two) times a day NEEDED Start Date: 05/25/18 Status: Orderedcyclobenzaprine 10 mg oral tablet 1 tablet = 10 mg, By Mouth, 3 times a day, PRN for spasm, May cause drowsiness, # 30 tablet, 0 Refills, Maintenance, 05/20/13 11:11:06, Tablet Start Date: 05/20/13 Status: Orderedgabapentin 300 mg oral capsule 300 mg, 1, capsule, By Mouth, 3 times a day, # 90 capsule, Refills 0, Maintenance, 05/25/18 1:44:31 EST Start Date: 05/25/18 Status: OrderedIbuprofen Refills 0, Maintenance, 08/08/19 8:53:00 EDT Start Date: 08/08/19 Status: OrderedLevothyroxine = 225 mcg, By Mouth, Daily, 0 Refills, Maintenance, 08/17/11 13:10:06 EDT Start Date: 08/17/11 Status: Orderedloratadine 10 mg oral tablet 1 tablet = 10 mg, By Mouth, Daily, 0 Refills, Maintenance, 01/05/14 15:49:05 Start Date: 01/05/14 Status: OrderedP-5 Ketamine 10%,baclofen2%, cyclobenzaprine2%,Diclofenac3%,Lzdlmwinbv54%,Bupivacaine2% topicalcrea P-5 Ketamine 10%,baclofen2%, cyclobenzaprine2%,Diclofenac3%,Reejiapajf20%,Bupivacaine2% topicalcream, See Instructions, # 240 Gm, Refills 1, Tot. Refills 1, Maintenance, 1-3 gms (pumps) to affected area 3-4 times a day, 10/27/19 14:52:00 EDT, Compound... Start Date: 10/27/19 Status: OrderedProAir HFA Inhalation, 4 times a day, 0 Refills, Maintenance Start Date: 08/17/11 Status: OrderedProtonix 40 mg oral delayed release tablet 1 tablet = 40 mg, By Mouth, 2 times a day, # 60 tablet, 0 Refills, Maintenance, 06/09/13 19:28:43, EC Tablet, 1 tablet By Mouth 2 times a day,x30 days Start Date: 06/09/13 Stop Date: 07/09/13 Status: OrderedSeroquel 300 mg oral tablet 1 tablet = 300 mg, By Mouth, Daily at bedtime, 0 Refills, Maintenance Start Date: 08/17/11 Status: OrderedSingulair 10 mg oral tablet 1 tablet = 10 mg, By Mouth, Daily before dinner, # 90 tablet, 0 Refills, Maintenance, 01/28/14 11:39:03, Tablet, 1 tablet By Mouth Daily before dinner,x90 days Start Date: 01/28/14 Stop Date: 04/28/14 Status: OrderedVitamin D3 50,000 intl units oral capsule 1 capsule = 50,000 International_Units, By Mouth, Every week, 0 Refills, Maintenance, 01/05/14 15:49:29 Start Date: 01/05/14 Status: OrderedZocor 20 mg oral tablet 1 tablet = 20 mg, By Mouth, Daily at bedtime, 0 Refills, Maintenance Start Date: 08/17/11 Status: OrderedZoloft 25 mg oral tablet 3 tablet = 75 mg, By Mouth, Daily, # 90 tablet, 0 Refills, Maintenance, 05/25/18 9:54:13 EST, Tablet Start Date: 05/25/18 Status: Ordered Problem List Condition Effective Dates Status Health Status Informant Asthma(Confirmed)1 Active Depression(Confirmed) Active GERD (gastroesophageal reflux Active disease)(Confirmed) Gadiel's thyroiditis(Confirmed) Active Hyperlipidemia(Confirmed) Active Hypertensive disorder(Confirmed) Active Sleep apnea-[facility] 16 cm(Confirmed) Active Vitamin D deficiency(Confirmed) Active 1pos bronchial challenge 2012 Social History Social History Type Response Smoking Status Former smoker; Other: pt sta kalyan she quit smoking 1 year and 10 months ago; entered on: 01/05/14 Sex
--- OUTSIDE RECORDS SUMMARY | 2022-01-24 13:56 | XMS_ITS | Continuity of Care Document ---
:[address] [facility] Address [address] [place] [address]- Care Team Providers Name Role Phone London BORGES, Kodak Oh Primary Care Physician Encounter [facility] Date(s): 10/28/20 - 11/04/20 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 Start Date: 10/20/20 Status: OrderedcloNIDine 0.1 mg oral tablet TAKE 1 TO 2 TABLETS BY MOUTH 2 (two) times a day NEEDED Start Date: 05/25/18 Status: Orderedgabapentin 300 mg oral capsule See Instructions, 3 caps PO BID and 4 caps PO qHS, Refills 0, Maintenance, 05/25/18 1:44:31 EST, Instructions Replace Required Details Start Date: 05/25/18 Status: OrderedhydrALAZINE 25 mg [...] opioid drug. Start Date: 08/17/20 Status: Orderedlevothyroxine 200 mcg (0.2 mg) oral capsule 1 capsule = 200 mcg, By Mouth, Daily in AM, Dose decrease, # 30 capsule, 1 Refills, Maintenance, 09/16/20 14:31:00 EDT, Capsule, [facility] [id number], Partial fill upon patient request if the prescription is for a schedule II... Start Date: 09/16/20 Status: Orderedlidocaine 4% topical film 1 patch, Topically, 2 times a day, # 12 each, 0 Refills, Maintenance, 09/28/20 13:53:00 EDT, Film, [facility] [id number], Partial fill upon patient request if the prescription is for a schedule II opioid drug., 1 patch Topical... Start Date: 09/28/20 Status: Orderedloratadine 10 mg oral tablet 1 tablet = 10 mg, By Mouth, Daily, 0 Refills, Maintenance, 01/05/14 15:49:05 Start Date: 01/05/14 Status: OrderedMetoprolol Tartrate 50 mg oral tablet 1 tablet = 50 mg, By Mouth, 2 times a day, dose increase, # 180 tablet, 1 Refills, Maintenance, 09/14/20 8:52:00 EDT, Tablet, [facility] [id number], Partial fill upon patient request if the prescription is for a schedule II op... Start Date: 09/14/20 Status: OrderedNuLYTELY with Flavor Packs oral powder for reconstitution See Instructions, Drink 240mL every 15-20 minutes until first half is gone. Repeat 6 hours prior to procedure., # 4,000 mL, 0 Refills, Maintenance, 10/21/20 12:57:00 EDT, [facility] [id number], Drink 240mL every 15-20 minutes... Start Date: [...] pain, # 56 tablet, 0 Refills, Maintenance, 11/03/20 7:21:00 EDT, Tablet, [facility] [id number], Partial fill upon patient request if the prescription is for a schedu... Start Date: 11/03/20 Status: OrderedP-5 Ketamine 10%,baclofen2%, cyclobenzaprine2%,Diclofenac3%,Rdybdfqoxl13%,Bupivacaine2% topicalcrea P-5 Ketamine 10%,baclofen2%, cyclobenzaprine2%,Diclofenac3%,Rhvscaokvl66%,Bupivacaine2% topicalcream, See Instructions, # 240 Gm, Refills 1, Tot. Refills 1, Maintenance, 1-3 gms (pumps) to affected area 3-4 times a day, 10/27/19 14:52:00 EDT, Compound... Start Date: 10/27/19 Status: Orderedpregabalin 50 mg oral capsule See Instructions, 1 cap PO qAM, 3 caps PO qPM, # 120 capsule, 1 Refills, Maintenance, 11/02/20 9:11:00 EDT, [place], [place] - [id number], 153, cm, 10/28/20 14:26:00 EDT, Height, 85.1,kg, 10/28/20 14:26:00 EDT, Dry Weight Start Date: 11/02/20 Status: OrderedProAir HFA Inhalation, 4 times a day, 0 Refills, Maintenance Start Date: 08/17/11 Status: OrderedSingulair 10 mg oral tablet 10 mg, 1, tablet, By Mouth, Daily before dinner, # 90 tablet, Refills 0, Tot. Refills 0, Maintenance, 10/28/20 17:37:00 EDT, Route to Pharmacy Electronically, [place], [place] - [id number], 153, cm, 10/28/20 14:26:00 EDT, Height, 85.1... [...] Vitamin D deficiency(Confirmed) Active 1pos bronchial challenge 70123t/p surgery [id number] 09/2020 Diagnosis Diagnosis Type Effective Dates Health Clinical Infor mant Status Service Asthma Discharge 10/28/20 Diagnosis Gadiel's Discharge 10/28/20 thyroiditis Diagnosis Health care Discharge 10/28/20 maintenance Diagnosis Vital Signs Most recent to oldest [Reference Range]: 1 Height 153 cm (10/28/20 2:26 PM) Weight 85.1 kg (10/28/20 2:26 PM) Oxygen Saturation [94-100 %] 100 % (10/28/20 2:26 PM) Pulse Rate [55-90 bpm] 91 bpm *H* (10/28/20 2:26 PM) Body Mass Index [18.5-24.99] 36.35 *>HHI* (10/28/20 2:26 PM) Blood Pressure [90-138/55-84 mm Hg] 130/86 mm Hg (10/28/20 2:26 PM) Respiratory Rate [16-30 br/min] 16 br/min (10/28/20 2:26 PM) Temperature [96.8-100.4 DegF] 99.0 DegF (10/28/20 2:26 PM) Mode of Delivery (Oxygen) Room air (10/28/20 2:26 PM) Blood pressure sites Arm, left (10/28/20 2:26 PM) Temperature Route Temporal (10/28/20 2:26 PM) Dry Weight 85.1 kg (10/28/20 2:26 PM) Weight Obtained Via Standing scale (10/28/20 2:26 PM) Social History Social History Type Response Smoking Status 5-9 cigarettes (between 1/4 to 1/2 pack)/day in last 30 days; Interested in cessation: Yes; Other: was using the gum , didnt like the taste and only worked briefly. Using nicotine lollipops now though from [place].; entered on: 08/17/20 Sex
--- OUTSIDE RECORDS SUMMARY | 2022-01-24 13:56 | XMS_ITS | Continuity of Care Document ---
:1965 Author Organization [facility] Address [address] [place] [address]- Care Team Providers Name Role Phone Kodak Callahan MD Primary Care Physician Encounter [facility] Date(s): 04/29/21 - 05/06/21 [facility] [address] [place] [address]- Encounter Diagnosis Cellulitis (Discharge Diagnosis) - 04/30/21 Onychomycosis (Discharge Diagnosis) - 04/30/21 Attending Physician: Kodak Callahan MD Allergies, Adverse [...] B adult vaccine 06/21/11 Recorded 1Result Comment: [facility]: [id number] Note: CDC info [id number] Note: vis given 08/02/06 Medications Adult pull ups, medium Adult pull ups, medium, [...] 6 hours,PRN:for wheezing Start Date: 02/21/13 Status: OrderedAntibiotics for cellulitis Antibiotics for cellulitis, Refills 0, Maintenance, 04/29/21 8:58:00 EST, Supply Start Date: 04/29/21 Status: Orderedatorvastatin 20 mg oral tablet 1 [...] a day, # 60 tablet, 5 Refills, [facility], 30, TAKE ONE TABLET BY MOUTH two (2) times a day, 153, cm, 02/15/21 16:52:00 EST, Height, 89.4, kg, 02/15/21 16:56:00 EST, Dry Weight Start Date: 04/18/21 Status: Orderedcephalexin monohydrate 500 mg oral capsule TAKE ONE CAPSULE BY MOUTH EVERY 6 HOURS Start Date: 04/29/21 Status: OrderedcloNIDine 0.1 mg oral tablet TAKE 1 TO 2 TABLETS BY MOUTH 2 (two) times a day NEEDED Start Date: 05/25/18 Status: Ordereddiazepam 5 mg oral tablet See Instructions, 1 tab PO 1 hr. prior to procedure. May repeat x 1 on arrival to [facility] if needed., # 2 tablet, Refills 0, [...] 1 Refills, Maintenance, 02/24/21 22:43:00 EST, Tablet, [facility] [id number], Partial fill upon patient request if the prescription is for a cooper... Start Date: 02/24/21 Status: Orderedlidocaine 4% topical film 1 patch, Topically, 2 times a day, # 12 each, 0 Refills, Maintenance, 09/28/20 13:53:00 EDT, Film, [facility] [id number], Partial fill upon patient request if the prescription is for a schedule II opioid drug., 1 patch Topical... Start Date: 09/28/20 Status: Orderedloratadine 10 mg oral tablet 10 mg, 1, tablet, By Mouth, Daily, # 30 tablet, Refills 5, Tot. Refills 5, Maintenance, 01/27/21 13:23:00 EST, Route to Pharmacy Electronically, [facility] [id number], Partial fill upon patient request if the prescription is f... Start Date: 01/27/21 Status: OrderedMetoprolol Tartrate 50 mg oral tablet 1 tablet, By Mouth, 2 times a day, DOSE INCREASE, # 180 tablet, 1 Refills, [facility], 153, cm,02/15/21 16:52:00 EST, Height, 89.4, kg, 02/15/21 16:56:00 EST, Dry Weight Start Date: 03/21/21 Status: OrderedNuLYTELY with Flavor Packs oral powder for reconstitution See Instructions, Drink 240mL every 15-20 minutes until first half is gone. Repeat 6 hours prior to procedure., # 4,000 mL, 0 Refills, Maintenance, 10/21/20 12:57:00 EDT, [place], [place] - [id number], Drink 240mL every 15-20 minutes... Start Date: [...] tablet See Instructions, 1 tab PO qAM, 1/2 tab PO q3pm, 1 tab PO qPM. Temporary dose increase for this month, # 70 tablet, 0 Refills, Maintenance, 04/19/21 22:08:00 EST, [facility] [id number], 153, cm, 02/15/21 16:52:00 EST, Height,... Start Date: 04/19/21 Status: OrderedP-5 Ketamine 10%,baclofen2%, cyclobenzaprine2%,Diclofenac3%,Djxuopaxtc95%,Bupivacaine2% topicalcrea P-5 Ketamine 10%,baclofen2%, cyclobenzaprine2%,Diclofenac3%,Amnakyejtr41%,Bupivacaine2% topicalcream, See Instructions, # 240 Gm, Refills 1, Tot. Refills 1, Maintenance, 1-3 gms (pumps) to affected area 3-4 times a day, 10/27/19 14:52:00 EDT, Compound... Start Date: 10/27/19 Status: Orderedpregabalin 50 mg oral capsule See Instructions, 1 cap PO qAM and 5 caps PO qHS. Dose increase., # 180 capsule, 1 Refills, Maintenance, 04/18/21 22:56:00 EST, [facility] [id number], 153, cm, 02/15/21 16:52:00 EST, Height, 89.4, kg, 02/15/21 16:56:00 EST, . Start Date: 04/18/21 Status: OrderedProAir HFA Inhalation, 4 times a day, 0 Refills, Maintenance Start Date: 08/17/11 Status: OrderedRight elbow padded sleeve Right elbow padded sleeve, See Instructions, # 1 each, Refills 0, Tot. Refills 0, Maintenance, To beworn during the day, 04/25/21 11:35:00 EST, Supply Start Date: 04/25/21 Status: OrderedRight neutral wrist splint Right neutral wrist splint, See Instructions, # 1 each, Refills 0, Tot. Refills 0, Maintenance, To be used at night and when able during the day, 04/25/21 11:36:00 EST, Supply Start Date: 04/25/21 Status: OrderedSingulair 10 mg oral tablet 10 mg, 1, tablet, By Mouth, Daily before dinner, # 90 tablet, Refills 0, Tot. Refills 0, Maintenance, 10/28/20 17:37:00 EDT, Route to Pharmacy Electronically, [facility] [place], [place] - [id number], 153, cm, 10/28/20 14:26:00 EDT, Height, 85.1... [...] deficiency(Confirmed) Active 1pos bronchial challenge /p surgery [id number] 09/2020 Diagnosis Diagnosis Type Effective Dates Health Status Clinical In formant Service Cellulitis Discharge 04/30/21 Diagnosis Onychomycosis Discharge 04/30/21 Diagnosis Vital Signs Most recent to oldest [Reference Range]: 1 Height 153 cm (04/29/21 9:27 AM) Weight 88.8 kg (04/29/21 9:27 AM) Oxygen Saturation [94-100 %] 96 % (04/29/21 9:27 AM) Pulse Rate [55-90 bpm] 83 bpm (04/29/21 9:27 AM) Body Mass Index [18.5-24.99] 37.93 *>HHI* (04/29/21 9:27 AM) Blood Pressure [90-138/55-84 mm Hg] 129/89 mm Hg (04/29/21 9:27 AM) Temperature [96.8-100.4 DegF] 98.3 DegF (04/29/21 9:27 AM) Blood pressure sites Arm, left (04/29/21 9:27 AM) Temperature Route Temporal (04/29/21 9:27 AM) Dry Weight 88.8 kg (04/29/21 9:27 AM) Weight Obtained Via Standing scale (04/29/21 9:27 AM) Social History Social History Type Response Smoking Status 5-9 cigarettes (between 1/4 to 1/2 pack)/day in last 30 days; Interested in cessation: Yes; Other: was using the gum , didnt like the taste and only worked briefly. Using nicotine lollipops now though from [place].; entered on: 08/17/20 Sex
--- OUTSIDE RECORDS SUMMARY | 2022-01-24 13:56 | XMS_ITS | Continuity of Care Document ---
:1965 Author Organization [facility] Address [address] [place] [address]- Care Team Providers Name Role Phone London BORGES, Kodak Oh Primary Care Physician Encounter [facility] Date(s): 10/10/21 - 11/09/21 [facility] [address] [place], [place] [address] Allergies, Adverse Reactions, Alerts Substance Reaction [...] adult vaccine 06/21/11 Recorded 1Result Comment: [facility]: [phone] Note: [facility] info [id number] Note: vis given 08/02/06 Medications acetaminophen 325 mg oral capsule 2 capsule = 650 mg, By Mouth, Every 4 hours, PRN as needed for fever, # 90 capsule, 0 Refills, Acute07/28/22 22:05:00 EDT, 07/27/21 22:04:00 EDT, Capsule, [facility] [place], [place] - [id number], Partial fill upon patient request if the [...] a day, # 60 tablet, 5 Refills, [facility], 30, TAKE ONE TABLET BY [...] 07/27/21 22:03:00 EDT, Route to Pharmacy Electronically, [place], [place] - [id number], Partial fill upon... Start Date: 07/27/21 Stop [...] DOSE decrease, # 90 tablet, 0 Refills, [facility], 155, cm, 08/16/21 13:46:00 EDT, Height, 90, kg, 07/27/21 21:54:00 EDT, Dry Weight Start Date: 08/23/21 Status: Orderedloratadine 10 mg oral tablet 1, tablet, By Mouth, Daily, # 30 tablet, Refills 5, Route to Pharmacy Electronically, [facility], 155, cm, 07/27/21 21:54:00 EDT, Height, 90, kg, 07/27/21 21:54:00 EDT, Dry Weight Start Date: 08/07/21 Status: OrderedMetoprolol Tartrate 50 mg oral tablet 1 tablet, By Mouth, 2 times a day, DOSE INCREASE, # 180 tablet, 1 Refills, [facility], 153, cm,02/15/21 16:52:00 EST, Height, 89.4, kg, 02/15/21 16:56:00 EST, Dry Weight Start Date: 03/21/21 Status: Orderedomega-3 polyunsaturated fatty acids 1000 mg [...] qPM, # 70 tablet, 0 Refills, Maintenance, 11/08/21 8:44:00 EDT, [facility] [id number], taking increased dose due to injury, checked massnvt, 11/09/21, 155, cm, 0... Start Date: 11/08/21 Status: Orderedpregabalin 50 mg oral capsule See Instructions, TAKE TWO CAPSULES BY MOUTH EVERY MORNING AND TAKE 5 CAPSULES BY MOUTH EVERY NIGHT AT BEDTIME checked masspat, # 196 capsule, 1 Refills, Maintenance, 10/25/21 13:12:00 EDT, [place], [place] - [id number], 155, cm, 0... Start Date: 10/25/21 Status: [...] 10/28/20 17:37:00 EDT, Route to Pharmacy Electronically, [place], [place] - [id number], 153, cm, 10/28/20 14:26:00 EDT, Height, 85.1... [...] deficiency(Confirmed) Active 1pos bronchial challenge /p surgery [id number] 09/2020 Social History Social History Type Response Smoking Status 5-9 cigarettes (between 1/4 to 1/2 pack)/day in last 30 days; Interested in cessation: Yes; Other: was using the gum , didnt like the taste and only worked briefly. Using nicotine lollipops now though from [place].; entered on: 08/17/20 Sex
--- OUTSIDE RECORDS SUMMARY | 2022-01-24 13:56 | XMS_ITS | Continuity of Care Document ---
:1965 Author Organization [facility] Address [address] [place] [address]- Care Team Providers Name Role Phone Kodak Callahan MD Primary Care Physician Encounter [facility] Date(s): 10/21/20 - 11/20/20 [facility] [address] [place] [address]- Attending Physician: Carlin Adams Admitting Physician: Carlin Adams Referring Physician: Carlin Adams Allergies, Adverse Reactions, Alerts Substance Reaction Severity [...] vaccine 06/21/11 Recorded 1Admin Note: CDC info [id number] Note: vis given 08/02/06 Medications Acetaminophen 0 [...] 5 Refills, Maintenance, 10/20/20 10:23:00 EDT, Tablet, [place], [place] - [id number], Partial fill upon patient request if the [...] May repeat x 1 on arrival to [facility] if needed., # 2 tablet, Refills 0, [...] 1 Refills, Maintenance, 11/18/20 12:51:00 EDT, Tablet, [place], [place] - [id number], Partial fill upon patient request if the prescriptio... Start Date: 11/18/20 Status: Orderedlidocaine 4% topical film 1 patch, Topically, 2 times a day, # 12 each, 0 Refills, Maintenance, 09/28/20 13:53:00 EDT, Film, [place], [place] - [id number], Partial fill upon patient request if the prescription is for a schedule II opioid drug., 1 patch Topical... Start Date: 09/28/20 Status: Orderedloratadine 10 mg oral tablet 1 tablet = 10 mg, By Mouth, Daily, 0 Refills, Maintenance, 01/05/14 15:49:05 Start Date: 01/05/14 Status: OrderedLyrica 25 mg oral capsule 2 [...] 1 Refills, Maintenance, 09/14/20 8:52:00 EDT, Tablet, [facility] [id number], Partial fill upon patient request if the prescription is for a schedule II op... Start Date: 09/14/20 Status: OrderedNuLYTELY with Flavor Packs oral powder for reconstitution See Instructions, Drink 240mL every 15-20 minutes until first half is gone. Repeat 6 hours prior to procedure., # 4,000 mL, 0 Refills, Maintenance, 10/21/20 12:57:00 EDT, [facility] [id number], Drink 240mL every 15-20 minutes... Start Date: [...] 0 Refills, Maintenance, 11/03/20 7:21:00 EDT, Tablet, [facility] [id number], Partial fill upon patient request if the prescription is for a schedu... Start Date: 11/03/20 Status: OrderedP-5 Ketamine 10%,baclofen2%, cyclobenzaprine2%,Diclofenac3%,Ktrulfyxae28%,Bupivacaine2% topicalcrea P-5 Ketamine 10%,baclofen2%, cyclobenzaprine2%,Diclofenac3%,Frtcqgmjkg01%,Bupivacaine2% topicalcream, See Instructions, # 240 Gm, Refills 1, Tot. Refills 1, Maintenance, 1-3 gms (pumps) to affected area 3-4 times a day, 10/27/19 14:52:00 EDT, Compound... Start Date: 10/27/19 Status: Orderedpregabalin 50 mg oral capsule See Instructions, 1 cap PO qAM, 3 caps PO qPM, # 120 capsule, 1 Refills, Maintenance, 11/02/20 9:11:00 EDT, [place], [place] - [id number], 153, cm, 10/28/20 14:26:00 EDT, Height, 85.1,kg, 10/28/20 14:26:00 EDT, Dry Weight Start Date: 11/02/20 Status: OrderedProAir HFA Inhalation, 4 times a day, 0 Refills, Maintenance Start Date: 08/17/11 Status: OrderedSingulair 10 mg oral tablet 10 mg, 1, tablet, By Mouth, Daily before dinner, # 90 tablet, Refills 0, Tot. Refills 0, Maintenance, 10/28/20 17:37:00 EDT, Route to Pharmacy Electronically, [place], [place] - [id number], 153, cm, 10/28/20 14:26:00 EDT, Height, 85.1... [...] Vitamin D deficiency(Confirmed) Active 1pos bronchial challenge 54008c/p surgery [id number] 09/2020 Social History Social History Type Response Smoking Status 5-9 cigarettes (between 1/4 to 1/2 pack)/day in last 30 days; Interested in cessation: Yes; Other: was using the gum , didnt like the taste and only worked briefly. Using nicotine lollipops now though from [place].; entered on: 08/17/20 Sex
--- OUTSIDE RECORDS SUMMARY | 2022-01-24 13:56 | XMS_ITS | Continuity of Care Document ---
:[address] [facility] Address [address] [place] [address]- Care Team Providers Name Role Phone London BORGES, Kodak Oh Primary Care Physician Encounter [facility] Date(s): 04/06/21 - 05/06/21 [facility] [address] [place], [place] [address] Allergies, Adverse Reactions, Alerts Substance [...] adult vaccine 06/21/11 Recorded 1Result Comment: [facility]: [phone] Note: CDC info [id number] Note: vis given 08/02/06 Medications Adult pull [...] a day, # 60 tablet, 5 Refills, [facility], 30, TAKE ONE TABLET [...] 1 Refills, Maintenance, 02/24/21 22:43:00 EST, Tablet, [facility] [id number], Partial fill upon patient request if the prescription is for a cooper... Start Date: 02/24/21 Status: Orderedlidocaine 4% topical film 1 patch, Topically, 2 times a day, # 12 each, 0 Refills, Maintenance, 09/28/20 13:53:00 EDT, Film, [facility] [id number], Partial fill upon patient request if the prescription is for a schedule II opioid drug., 1 patch Topical... Start Date: 09/28/20 Status: Orderedloratadine 10 mg oral tablet 10 mg, 1, tablet, By Mouth, Daily, # 30 tablet, Refills 5, Tot. Refills 5, Maintenance, 01/27/21 13:23:00 EST, Route to Pharmacy Electronically, [facility], [facility] [id number], Partial fill upon patient request if the prescription is f... Start Date: 01/27/21 Status: OrderedMetoprolol Tartrate 50 mg oral tablet 1 tablet, By Mouth, 2 times a day, DOSE INCREASE, # 180 tablet, 1 Refills, [facility], 153, cm,02/15/21 16:52:00 EST, Height, 89.4, kg, 02/15/21 16:56:00 EST, Dry Weight Start Date: 03/21/21 Status: OrderedNuLYTELY with Flavor Packs oral powder for reconstitution See Instructions, Drink 240mL every 15-20 minutes until first half is gone. Repeat 6 hours prior to procedure., # 4,000 mL, 0 Refills, Maintenance, 10/21/20 12:57:00 EDT, [facility] [id number], Drink 240mL every 15-20 minutes... Start Date: [...] tablet, 0 Refills, Maintenance, 04/19/21 22:08:00 EST, [facility], [facility] [id number], 153, cm, 02/15/21 16:52:00 EST, Height,... Start Date: 04/19/21 Status: OrderedP-5 Ketamine 10%,baclofen2%, cyclobenzaprine2%,Diclofenac3%,Amdrqnupfg27%,Bupivacaine2% topicalcrea P-5 Ketamine 10%,baclofen2%, cyclobenzaprine2%,Diclofenac3%,Icmauqqpzp85%,Bupivacaine2% topicalcream, See Instructions, # 240 Gm, Refills 1, Tot. Refills 1, Maintenance, 1-3 gms (pumps) to affected area 3-4 times a day, 10/27/19 14:52:00 EDT, Compound... Start Date: 10/27/19 Status: Orderedpregabalin 50 mg oral capsule See Instructions, 1 cap PO qAM and 5 caps PO qHS. Dose increase., # 180 capsule, 1 Refills, Maintenance, 04/18/21 22:56:00 EST, [place], [place] - [id number], 153, cm, 02/15/21 16:52:00 EST, Height, 89.4, kg, 02/15/21 16:56:00 EST, DrGil.. Start Date: 04/18/21 Status: OrderedProAir HFA Inhalation, [...] 10/28/20 17:37:00 EDT, Route to Pharmacy Electronically, [facility] [id number], 153, cm, 10/28/20 14:26:00 EDT, Height, 85.1... [...] deficiency(Confirmed) Active 1pos bronchial challenge /p surgery [id number] 09/2020 Social History Social History Type Response Smoking Status 5-9 cigarettes (between 1/4 to 1/2 pack)/day in last 30 days; Interested in cessation: Yes; Other: was using the gum , didnt like the taste and only worked briefly. Using nicotine lollipops now though from [place].; entered on: 08/17/20 Sex
--- OUTSIDE RECORDS SUMMARY | 2022-01-24 13:57 | XMS_ITS | Continuity of Care Document ---
:1965 Author Organization [facility] Address [address] [place] [address]- Care Team Providers Name Role Phone Kodak Callahan MD Primary Care Physician Encounter [facility] Date(s): 07/15/21 - 07/22/21 [facility] [address] [place] [address]- Encounter Diagnosis Uterine fibroid (Discharge Diagnosis) - 07/15/21 Constipation (Discharge Diagnosis) - 07/15/21 Attending Physician: Kodak Callahan MD Allergies, Adverse [...] B adult vaccine 06/21/11 Recorded 1Result Comment: [facility]: [phone] Note: CDC info [id number] Note: vis given 08/02/06 Medications Adult pull [...] a day, # 60 tablet, 5 Refills, [facility], 30, TAKE ONE TABLET BY [...] Pharmacy Electronically, [place]... Start Date: 11/15/20 Status: OrderedDiflucan 150 mg oral tablet 1 tablet = 150 mg, By Mouth, Once, Take second tablet only if symptoms do not resolve 3 days after first tablet, # 1 tablet, 1 Refills, Soft Stop, 07/14/21 22:00:00 EDT, Tablet, [facility] [id number], Partial fill upon patient... Start Date: 07/14/21 Status: Orderedhydrochlorothiazide 25 mg oral tablet 25 [...] 1 Refills, Maintenance, 02/24/21 22:43:00 EST, Tablet, [facility] [id number], Partial fill upon patient request if the prescription is for a cooper... Start Date: 02/24/21 Status: Orderedloratadine 10 mg oral tablet 10 mg, 1, tablet, By Mouth, Daily, # 30 tablet, Refills 5, Tot. Refills 5, Maintenance, 01/27/21 13:23:00 EST, Route to Pharmacy Electronically, [facility] [id number], Partial fill upon patient request if the prescription is f... Start Date: 01/27/21 Status: OrderedMetoprolol Tartrate 50 mg oral tablet 1 tablet, By Mouth, 2 times a day, DOSE INCREASE, # 180 tablet, 1 Refills, [facility], 153, cm,02/15/21 16:52:00 EST, Height, 89.4, kg, 02/15/21 16:56:00 EST, Dry Weight Start Date: 03/21/21 Status: OrderedMiraLax oral powder for reconstitution = 17 Gm, By Mouth, 2 times a day, dissolve in water before taking titrate to 1-2 smooth bowel movements daily without straining, # 527 Gm, 1 Refills, Acute 09/14/21 13:27:00 EDT, 07/15/21 13:26:00 EDT,REC Powder, [place], [place]... Start Date: 07/15/21 Stop Date: 09/14/21 Status: OrderedNuLYTELY with Flavor Packs oral powder for reconstitution See Instructions, Drink 240mL every 15-20 minutes until first half is gone. Repeat 6 hours prior to procedure., # 4,000 mL, 0 Refills, Maintenance, 10/21/20 12:57:00 EDT, [facility] [id number], Drink 240mL every 15-20 minutes... Start Date: [...] qPM, # 70 tablet, 0 Refills, Maintenance, 07/11/21 22:30:00 EDT, [facility] [id number], taking increased dose due to injury, checked masspat, 07/12/21, 155, cm,... Start Date: 07/11/21 Status: OrderedP-5 Ketamine 10%,baclofen2%, cyclobenzaprine2%,Diclofenac3%,Vovhpvxxca62%,Bupivacaine2% topicalcrea P-5 Ketamine 10%,baclofen2%, cyclobenzaprine2%,Diclofenac3%,Orujddicdf78%,Bupivacaine2% topicalcream, See Instructions, # 240 Gm, Refills [...] capsule, 1 Refills, Maintenance, 07/13/21 13:43:00 EDT, [facility] [id number], checked mass... Start Date: 07/13/21 Status: OrderedProAir [...] 10/28/20 17:37:00 EDT, Route to Pharmacy Electronically, [facility] [id number], 153, cm, 10/28/20 14:26:00 EDT, Height, 85.1... Start Date: 10/28/20 Stop Date: 11/10/21 Status: OrderedVitamin D3 50,000 intl units oral [...] deficiency(Confirmed) Active 1pos bronchial challenge /p surgery [id number] 09/2020 Diagnosis Diagnosis Type Effective Dates Health Status Clinical In formant Service Uterine fibroid Discharge 07/15/21 Diagnosis Constipation Discharge 07/15/21 Diagnosis Vital Signs Most recent to oldest [Reference Range]: 1 Height 155 cm (07/15/21 1:03 PM) Weight 90.0 kg (07/15/21 1:03 PM) Oxygen Saturation [94-100 %] 99 % (07/15/21 1:03 PM) Pulse Rate [55-90 bpm] 96 bpm *H* (07/15/21 1:03 PM) Body Mass Index [18.5-24.99] 37.46 *>HHI* (07/15/21 1:03 PM) Blood Pressure [90-138/55-84 mm Hg] 124/84 mm Hg (07/15/21 1:03 PM) Blood pressure sites Arm, left (07/15/21 1:03 PM) Social History Social History Type Response Smoking Status 5-9 cigarettes (between 1/4 to 1/2 pack)/day in last 30 days; Interested in cessation: Yes; Other: was using the gum , didnt like the taste and only worked briefly. Using nicotine lollipops now though from [place].; entered on: 08/17/20 Sex
--- OUTSIDE RECORDS SUMMARY | 2022-01-24 13:57 | XMS_ITS | Continuity of Care Document ---
:1965 Author Organization [facility] Address [address] [place] [address]- Care Team Providers Name Role Phone Kodak Callahan MD Primary Care Physician Encounter [facility] Date(s): 01/18/21 - 02/17/21 [facility] [address] [place], [place] [address] Allergies, Adverse Reactions, Alerts Substance [...] B adult vaccine 06/21/11 Recorded 1Result Comment: [facility]: [id number] Note: CDC info [id number] Note: vis given 08/02/06 Medications Acetaminophen 0 [...] 5 Refills, Maintenance, 10/20/20 10:23:00 EDT, Tablet, [place], [place] - [id number], Partial fill upon patient request if the [...] 175 mcg (0.175 mg) oral tablet 1 tablet, By Mouth, Daily in AM, # 30 tablet, 0 Refills, Maintenance, 02/16/21 12:08:00 EST, [facility] [id number], patient needs to complete labwork for further refills, 153, cm, 02/15/21 16:52:00 EST, Height, 89.4, kg, 02/15... Start Date: 02/16/21 Status: Orderedlidocaine 4% topical film 1 patch, Topically, 2 times a day, # 12 each, 0 Refills, Maintenance, 09/28/20 13:53:00 EDT, Film, [facility] [id number], Partial fill upon patient request if the prescription is for a schedule II opioid drug., 1 patch Topical... Start Date: 09/28/20 Status: Orderedloratadine 10 mg oral tablet 10 mg, 1, tablet, By Mouth, Daily, # 30 tablet, Refills 5, Tot. Refills 5, Maintenance, 01/27/21 13:23:00 EST, Route to Pharmacy Electronically, [facility] [id number], Partial fill upon patient request if the prescription is f... Start Date: 01/27/21 Status: OrderedMetoprolol Tartrate 50 mg oral tablet 1 tablet = 50 mg, By Mouth, 2 times a day, dose increase, # 180 tablet, 1 Refills, Maintenance, 09/14/20 8:52:00 EDT, Tablet, [facility] [id number], Partial fill upon patient request if the prescription is for a schedule II op... Start Date: 09/14/20 Status: OrderedNuLYTELY with Flavor Packs oral powder for reconstitution See Instructions, Drink 240mL every 15-20 minutes until first half is gone. Repeat 6 hours prior to procedure., # 4,000 mL, 0 Refills, Maintenance, 10/21/20 12:57:00 EDT, [facility] [id number], Drink 240mL every 15-20 minutes... Start Date: [...] 0 Refills, Maintenance, 01/03/21 16:09:00 EDT, Tablet, [facility] [id number], Partial fill upon patient request if the prescription is for a sched... Start Date: 01/03/21 Status: OrderedoxyCODONE 10 mg oral tablet See Instructions, TAKE ONE TABLET BY MOUTH two (2) times a day NEEDED FOR PAIN, # 56 tablet, 0 Refills, Maintenance, 01/31/21 17:09:00 EST, [facility] [id number], 153, cm, 01/25/21 14:26:00 EST, Height, 85.1, kg, 10/28/20... Start Date: 01/31/21 Status: OrderedP-5 Ketamine 10%,baclofen2%, cyclobenzaprine2%,Diclofenac3%,Exkmcqzhxw94%,Bupivacaine2% topicalcrea P-5 Ketamine 10%,baclofen2%, cyclobenzaprine2%,Diclofenac3%,Apihwgrdoj19%,Bupivacaine2% topicalcream, See Instructions, # 240 Gm, Refills 1, Tot. Refills 1, Maintenance, 1-3 gms (pumps) to affected area 3-4 times a day, 10/27/19 14:52:00 EDT, Compound... Start Date: 10/27/19 Status: Orderedpregabalin 50 mg oral capsule See Instructions, TAKE ONE CAPSULE BY MOUTH EVERY MORNING AND TAKE THREE CAPSULES BY MOUTH EVERY EVENING, # 120 capsule, 0 Refills, Maintenance, 01/19/21 8:26:00 EDT, [facility] [id number], 153, cm, 11/19/20 8:43:00 EDT, [facility]... Start Date: 01/19/21 Status: Orderedpregabalin 50 mg oral capsule See Instructions, 1 cap PO qAM, 4 caps PO qHS. Dose increase. Please fill when patient next due., # 150 capsule, 1 Refills, Maintenance, 02/01/21 9:05:00 EST, [facility] [id number], 153, cm, 02/01/21 8:58:00 EST, Height, 85.1,... Start Date: 02/01/21 Status: OrderedProAir HFA Inhalation, 4 times a day, 0 Refills, Maintenance Start Date: 08/17/11 Status: OrderedSingulair 10 mg oral tablet 10 mg, 1, tablet, By Mouth, Daily before dinner, # 90 tablet, Refills 0, Tot. Refills 0, Maintenance, 10/28/20 17:37:00 EDT, Route to Pharmacy Electronically, [facility] [place] [place] - [id number], 153, cm, 10/28/20 14:26:00 EDT, Height, 85.1... [...] deficiency(Confirmed) Active 1pos bronchial challenge /p surgery [id number] 09/2020 Social History Social History Type Response Smoking Status 5-9 cigarettes (between 1/4 to 1/2 pack)/day in last 30 days; Interested in cessation: Yes; Other: was using the gum , didnt like the taste and only worked briefly. Using nicotine lollipops now though from [place].; entered on: 08/17/20 Sex
--- OUTSIDE RECORDS SUMMARY | 2022-01-24 13:57 | XMS_ITS | Continuity of Care Document ---
:1965 Author Organization [facility] Address [address] [place] [address]- Care Team Providers Name Role Phone Sarah Sanderson Primary Care Physician [place] [facility] [place] - 10/24/19 [facility] [address] [place] [address]- [facility] Allergies, Adverse Reactions, Alerts Substance Reaction Severity Status doxycycline1 hives Active Spiriva Active traMADol swelling and hives Active 1hives Immunizations Given and Recorded Vaccine Date Status Refusal Reason Fluzone (oldterm)1 01/05/14 Given tetanus/diphtheria/pertussis, acel(Tdap)2 02/07/13 Given influenza virus vaccine, inactivated 01/01/13 Given 1Admin Note: CDC info [id number] Note: vis given 08/02/06 Medications Acetaminophen 0 [...] 11:11:30 EDT, Inhaler, Route to Pharmacy Electronically, [id number], [facility]/pharmacy#[id number] Start Date: 05/27/18 Stop Date: 02/21/19 Status: [...] Start Date: 01/05/14 Status: OrderedP-5 Ketamine 10%,baclofen2%, cyclobenzaprine2%,Diclofenac3%,Hpmijqrgog23%,Bupivacaine2% topicalcrea P-5 Ketamine 10%,baclofen2%, cyclobenzaprine2%,Diclofenac3%,Psgvksbjqf16%,Bupivacaine2% topicalcream, See Instructions, # 240 Gm, Refills 1, Tot. Refills 1, Maintenance, 1-3 gms (pumps) to affected area 3-4 times a day, 07/16/19 11:06:00 EDT, Compound... Start Date: 07/16/19 Status: OrderedProAir HFA Inhalation, 4 times a [...]
--- OUTSIDE RECORDS SUMMARY | 2022-01-24 13:57 | XMS_ITS | Continuity of Care Document ---
:1965 Author Organization [facility] Address [address] [place] [address]- Care Team Providers Name Role Phone London BORGES, Kodak Oh Primary Care Physician Encounter [facility] [place] Date(s): 04/05/21 - 04/12/21 [facility] [address] [place], [place] [address] Attending Physician: Nelson Smith MD Allergies, Adverse Reactions, Alerts Substance Reaction [...] 06/21/11 Recorded 1Result Comment: [facility]: [id number] Note: CDC info [id number] Note: vis given 08/02/06 Medications Acetaminophen 0 [...] 5 Refills, Maintenance, 10/20/20 10:23:00 EDT, Tablet, [place], [place] - [id number], Partial fill upon patient request if the [...] 1 Refills, Maintenance, 02/24/21 22:43:00 EST, Tablet, [facility] [id number], Partial fill upon patient request if the prescription is for a cooper... Start Date: 02/24/21 Status: Orderedlidocaine 4% topical film 1 patch, Topically, 2 times a day, # 12 each, 0 Refills, Maintenance, 09/28/20 13:53:00 EDT, Film, [facility] [id number], Partial fill upon patient request if the prescription is for a schedule II opioid drug., 1 patch Topical... Start Date: 09/28/20 Status: Orderedloratadine 10 mg oral tablet 10 mg, 1, tablet, By Mouth, Daily, # 30 tablet, Refills 5, Tot. Refills 5, Maintenance, 01/27/21 13:23:00 EST, Route to Pharmacy Electronically, [facility] [id number], Partial fill upon patient request if the prescription is f... Start Date: 01/27/21 Status: OrderedMetoprolol Tartrate 50 mg oral tablet 1 tablet, By Mouth, 2 times a day, DOSE INCREASE, # 180 tablet, 1 Refills, [facility], 153, cm,02/15/21 16:52:00 EST, Height, 89.4, kg, 02/15/21 16:56:00 EST, Dry Weight Start Date: 03/21/21 Status: OrderedNuLYTELY with Flavor Packs oral powder for reconstitution See Instructions, Drink 240mL every 15-20 minutes until first half is gone. Repeat 6 hours prior to procedure., # 4,000 mL, 0 Refills, Maintenance, 10/21/20 12:57:00 EDT, [facility] [id number], Drink 240mL every 15-20 minutes... Start Date: [...] PAIN, # 56 tablet, 0 Refills, Maintenance, 03/28/21 22:06:00 EST, [facility] [id number], 03/29/21, 153, cm, 02/15/21 16:52:00 EST, Height, 89.4, kg,... Start Date: 03/28/21 Status: OrderedP-5 Ketamine 10%,baclofen2%, cyclobenzaprine2%,Diclofenac3%,Vprgsezlpv81%,Bupivacaine2% topicalcrea P-5 Ketamine 10%,baclofen2%, cyclobenzaprine2%,Diclofenac3%,Cdmpuipavi41%,Bupivacaine2% topicalcream, See Instructions, # 240 Gm, Refills 1, Tot. Refills 1, Maintenance, 1-3 gms (pumps) to affected area 3-4 times a day, 10/27/19 14:52:00 EDT, Compound... Start Date: 10/27/19 Status: Orderedpregabalin 50 mg oral capsule See Instructions, TAKE ONE CAPSULE BY MOUTH EVERY MORNING AND TAKE THREE CAPSULES BY MOUTH EVERY EVENING, # 120 capsule, 0 Refills, Maintenance, 01/19/21 8:26:00 EDT, [facility] [id number], 153, cm, 11/19/20 8:43:00 EDT, [facility]... Start Date: 01/19/21 Status: Orderedpregabalin 50 mg oral capsule See Instructions, 1 cap PO qAM, 5 caps PO qHS. Dose increase. Please fill when patient next due., # 180 capsule, 1 Refills, Maintenance, 04/01/21 16:23:00 EST, [place], [place] - [id number], 153, cm, 02/15/21 16:52:00 EST, Height, 89.... Start Date: 04/01/21 Status: OrderedProAir HFA Inhalation, 4 times a day, 0 Refills, Maintenance Start Date: 08/17/11 Status: OrderedSingulair 10 mg oral tablet 10 mg, 1, tablet, By Mouth, Daily before dinner, # 90 tablet, Refills 0, Tot. Refills 0, Maintenance, 10/28/20 17:37:00 EDT, Route to Pharmacy Electronically, [facility] [id number], 153, cm, 10/28/20 14:26:00 EDT, Height, 85.1... Start Date: 10/28/20 Stop Date: 01/26/21 Status: OrderedVitamin D3 50,000 intl units oral capsule 1 capsule = 50,000 International_Units, By Mouth, Every week, 0 Refills, Maintenance, 10/20/14 15:49:29 Start Date: 01/05/14 Status: OrderedWarm Air [...] Vitamin D deficiency(Confirmed) Active 1pos bronchial challenge 99442o/p surgery [id number] 09/2020 Social History Social History Type Response Smoking Status 5-9 cigarettes (between 1/4 to 1/2 pack)/day in last 30 days; Interested in cessation: Yes; Other: was using the gum , didnt like the taste and only worked briefly. Using nicotine lollipops now though from [place].; entered on: 08/17/20 Sex
--- OUTSIDE RECORDS SUMMARY | 2022-01-24 13:57 | XMS_ITS | Continuity of Care Document ---
:1965 Author Organization [facility] Address [address] [place] [address]- Care Team Providers Name Role Phone Kodak Callahan MD Primary Care Physician Encounter [facility] [place] [place] Date(s): 07/25/21 - 10/14/21 [facility] [address] [place] [id number] Attending Physician: Andres Garcia MD Admitting Physician: Andres Garcia MD Allergies, Adverse Reactions, Alerts Substance Reaction [...] B adult vaccine 06/21/11 Recorded 1Result Comment: [facility] [place][note 2]: [id number] Note: CDC info [id number] Note: vis given 08/02/06 Medications acetaminophen 325 mg oral capsule 2 capsule = 650 mg, By Mouth, Every 4 hours, PRN as needed for fever, # 90 capsule, 0 Refills, Acute07/28/22 22:05:00 EDT, 07/27/21 22:04:00 EDT, Capsule, [facility] [place], [place] - [id number], Partial fill upon patient request if the [...] a day, # 60 tablet, 5 Refills, [facility], 30, TAKE ONE TABLET BY [...] 07/27/21 22:03:00 EDT, Route to Pharmacy Electronically, [place], [place] - [id number], Partial fill upon... Start Date: 07/27/21 Stop [...] DOSE decrease, # 90 tablet, 0 Refills, [facility], 155, cm, 08/16/21 13:46:00 EDT, Height, 90, kg, 07/27/21 21:54:00 EDT, Dry Weight Start Date: 08/23/21 Status: Orderedloratadine 10 mg oral tablet 1, tablet, By Mouth, Daily, # 30 tablet, Refills 5, Route to Pharmacy Electronically, [facility], 155, cm, 07/27/21 21:54:00 EDT, Height, 90, kg, 07/27/21 21:54:00 EDT, Dry Weight Start Date: 08/07/21 Status: OrderedMetoprolol Tartrate 50 mg oral tablet 1 tablet, By Mouth, 2 times a day, DOSE INCREASE, # 180 tablet, 1 Refills, [facility], 153, cm,02/15/21 16:52:00 EST, Height, 89.4, [...] qPM, # 70 tablet, 0 Refills, Maintenance, 10/10/21 10:42:00 EDT, [facility] [id number], taking increased dose due to injury, checked masspat, 155, cm, 08/16/21 1... Start Date: 10/10/21 Status: Orderedpregabalin 50 mg oral capsule See Instructions, TAKE TWO CAPSULES BY MOUTH EVERY MORNING AND TAKE 5 CAPSULES BY MOUTH EVERY NIGHT AT BEDTIME, # 196 capsule, 1 Refills, Maintenance, 09/20/21 11:27:00 EDT, [facility] [id number], 09/21/21, 155, cm, 08/16/21 1... Start Date: 09/20/21 Status: OrderedProAir HFA Inhalation, 4 times a [...] 10/28/20 17:37:00 EDT, Route to Pharmacy Electronically, [facility] [place], [place] - [id number], 153, cm, 10/28/20 14:26:00 EDT, Height, 85.1... [...] Vitamin D deficiency(Confirmed) Active 1pos bronchial challenge 47952p/p surgery [id number] 09/2020 Social History Social History Type Response Smoking Status 5-9 cigarettes (between 1/4 to 1/2 pack)/day in last 30 days; Interested in cessation: Yes; Other: was using the gum , didnt like the taste and only worked briefly. Using nicotine lollipops now though from [place].; entered on: 08/17/20 Sex
--- OUTSIDE RECORDS SUMMARY | 2022-01-24 13:57 | XMS_ITS | Continuity of Care Document ---
:1965 Author Organization [facility] Address [address] [place] [address] Drive [address] [place] [address]- Care Team Providers Name Role Phone London BORGES, Kodak Oh Primary Care Physician Encounter [facility] [place] Date(s): 08/09/20 - 10/06/[address] [place] [id number] Attending Physician: Robert Landis MD Referring Physician: Francis PATE, Uma Allergies, Adverse Reactions, Alerts Substance Reaction Severity [...] vaccine 06/21/11 Recorded 1Admin Note: CDC info [id number] Note: vis given 08/02/06 Medications Acetaminophen 0 [...] 9:49:19 EST, Powder Start Date: 05/25/18 Status: OrderedcloNIDine 0.1 mg oral tablet TAKE [...] 1 Refills, Maintenance, 09/16/20 14:31:00 EDT, Capsule, [facility] [id number], Partial fill upon patient request if the prescription is for a schedule II... Start Date: 09/16/20 Status: Orderedlidocaine 4% topical film 1 patch, Topically, 2 times a day, # 12 each, 0 Refills, Maintenance, 09/28/20 13:53:00 EDT, Film, [facility] [id number], Partial fill upon patient request if the prescription is for a schedule II opioid drug., 1 patch Topical... Start Date: 09/28/20 Status: Orderedloratadine 10 mg oral tablet 1 tablet = 10 mg, By Mouth, Daily, 0 Refills, Maintenance, 01/05/14 15:49:05 Start Date: 01/05/14 Status: OrderedLyrica 50 mg oral capsule See Instructions, 1 cap PO daily for one week, then 1 cap PO BID for one week, then 1 cap qAM and 2 caps qPM for one week, then 1 cap qAM and 3 caps qPM for one week. To replace gabapentin, # 70 capsule, 0 Refills, Maintenance, 10/04/20 15:07:00 EDT,... Start Date: 10/04/20 Status: OrderedMetoprolol Tartrate 50 mg oral tablet 1 tablet = 50 mg, By Mouth, 2 times a day, dose increase, # 180 tablet, 1 Refills, Maintenance, 09/14/20 8:52:00 EDT, Tablet, [facility] [id number], Partial fill upon patient request if the prescription is for a schedule II op... Start Date: 09/14/20 Status: Orderedomega-3 polyunsaturated fatty acids 1000 mg [...] day, PRN as needed for pain, # 14 tablet, 0 Refills, Maintenance, 10/01/20 17:26:00 EDT, Tablet, [facility]/pharmacy #[id number], Partial fill upon patient request if the prescription is for a schedule II opioid drug., 153, cm... Start Date: 10/01/20 Status: OrderedP-5 Ketamine 10%,baclofen2%, cyclobenzaprine2%,Diclofenac3%,Czewgijnio63%,Bupivacaine2% topicalcrea P-5 Ketamine 10%,baclofen2%, cyclobenzaprine2%,Diclofenac3%,Zomictuzkf62%,Bupivacaine2% topicalcream, See Instructions, # 240 Gm, Refills [...] thyroiditis(Confirmed) Active Hyperlipidemia(Confirmed) Active Hypertensive disorder(Confirmed) Active Severe persistent asthma(Confirmed) Active [facility] ap[facility] 16 cm(Confirmed) Active Vitamin D deficiency(Confirmed) Active 1pos bronchial challenge 82904o/p surgery 2019 Social History Social History Type Response Smoking Status 5-9 cigarettes (between 1/4 to 1/2 pack)/day in last 30 days; Interested in cessation: Yes; Other: was using the gum , didnt like the taste and only worked briefly. Using nicotine lollipops now though from [place].; entered on: 08/17/20 Sex
--- OUTSIDE RECORDS SUMMARY | 2022-01-24 13:57 | XMS_ITS | Continuity of Care Document ---
:1965 Author Organization [facility] Address [address] [place] [address]- Care Team Providers Name Role Phone Kodak Callahan MD Primary Care Physician [place] [facility] [place] 01/02/21 [facility] [address] [place], [place] [address] Attending Physician: Kodak Callahan MD Allergies, Adverse [...] vaccine 06/21/11 Recorded 1Admin Note: CDC info [id number] Note: vis given 08/02/06 Medications Acetaminophen 0 [...] 5 Refills, Maintenance, 10/20/20 10:23:00 EDT, Tablet, [place], [place] - [id number], Partial fill upon patient request if the [...] May repeat x 1 on arrival to [facility] if needed., # 2 tablet, Refills [...] 1 Refills, Maintenance, 11/18/20 12:51:00 EDT, Tablet, [facility] [id number], Partial fill upon patient request if the prescriptio... Start Date: 11/18/20 Status: Orderedlidocaine 4% topical film 1 patch, Topically, 2 times a day, # 12 each, 0 Refills, Maintenance, 09/28/20 13:53:00 EDT, Film, [facility] [id number], Partial fill upon patient request if the prescription is for a schedule II opioid drug., 1 patch Topical... Start Date: 09/28/20 Status: Orderedloratadine 10 mg oral tablet 10 mg, 1, tablet, By Mouth, Daily, # 30 tablet, Refills 1, Tot. Refills 1, Maintenance, 12/06/20 13:03:00 EDT, Route to Pharmacy Electronically, [facility] [id number], Partial fill upon patient request if the [...] 1 Refills, Maintenance, 09/14/20 8:52:00 EDT, Tablet, [facility] [id number], Partial fill upon patient request if the prescription is for a schedule II op... Start Date: 09/14/20 Status: OrderedNuLYTELY with Flavor Packs oral powder for reconstitution See Instructions, Drink 240mL every 15-20 minutes until first half is gone. Repeat 6 hours prior to procedure., # 4,000 mL, 0 Refills, Maintenance, 10/21/20 12:57:00 EDT, [facility] [id number], Drink 240mL every 15-20 minutes... Start Date: [...] 0 Refills, Maintenance, 01/03/21 16:09:00 EDT, Tablet, [facility] [id number], Partial fill upon patient request if the prescription is for a sched... Start Date: 01/03/21 Status: OrderedP-5 Ketamine 10%,baclofen2%, cyclobenzaprine2%,Diclofenac3%,Yomvacbunx93%,Bupivacaine2% topicalcrea P-5 Ketamine 10%,baclofen2%, cyclobenzaprine2%,Diclofenac3%,Doilucsbqh75%,Bupivacaine2% topicalcream, See Instructions, # 240 Gm, Refills 1, Tot. Refills 1, Maintenance, 1-3 gms (pumps) to affected area 3-4 times a day, 10/27/19 14:52:00 EDT, Compound... Start Date: 10/27/19 Status: Orderedpregabalin 50 mg oral capsule See Instructions, 1 cap PO qAM, 3 caps PO qPM, # 120 capsule, 1 Refills, Maintenance, 11/02/20 9:11:00 EDT, [facility] [id number], 153, cm, 10/28/20 14:26:00 EDT, Height, 85.1,kg, 10/28/20 14:26:00 EDT, Dry Weight Start Date: 11/02/20 Status: OrderedProAir HFA Inhalation, 4 times a day, 0 Refills, Maintenance Start Date: 08/17/11 Status: OrderedSingulair 10 mg oral tablet 10 mg, 1, tablet, By Mouth, Daily before dinner, # 90 tablet, Refills 0, Tot. Refills 0, Maintenance, 10/28/20 17:37:00 EDT, Route to Pharmacy Electronically, [facility] [id number], 153, cm, 10/28/20 14:26:00 EDT, Height, 85.1... [...] Vitamin D deficiency(Confirmed) Active 1pos bronchial challenge 57838h/p surgery [id number] 09/2020 Social History Social History Type Response Smoking Status 5-9 cigarettes (between 1/4 to 1/2 pack)/day in last 30 days; Interested in cessation: Yes; Other: was using the gum , didnt like the taste and only worked briefly. Using nicotine lollipops now though from [place].; entered on: 08/17/20 Sex
--- OUTSIDE RECORDS SUMMARY | 2022-01-24 13:57 | XMS_ITS | Continuity of Care Document ---
:1965 Author Organization [facility] Address [address] [place] [address]- Care Team Providers Name Role Phone Kodak Callahan MD Primary Care Physician Encounter [facility] Date(s): 11/30/21 - 12/30/21 [facility] [address] [place], [place] [address] Allergies, Adverse Reactions, Alerts Substance Reaction [...] B adult vaccine 06/21/11 Recorded 1Result Comment: [facility]: [phone] Note: CDC info [id number] Note: vis given 08/02/06 Medications acetaminophen 325 mg oral capsule 2 capsule = 650 mg, By Mouth, Every 4 hours, PRN as needed for fever, # 90 capsule, 0 Refills, Acute07/28/22 22:05:00 EDT, 07/27/21 22:04:00 EDT, Capsule, [facility] [place], [place] - [id number], Partial fill upon patient request if the [...] a day, # 60 tablet, 5 Refills, [facility], 30, TAKE ONE TABLET BY [...] 01/15/22 11:23:00 EDT, 12/16/21 11:23:00 EDT, Cream, [facility] [id number], Partial fill upon patient request if the pres... Start Date: 12/16/21 Stop Date: 01/15/22 Status: Orderedclotrimazole 1% topical cream 1 application, Topically, 2 times a day, use until 2 days after rash resolves, # 60 Gm, 1 Refills, Acute 02/26/22 15:46:00 EST, 01/15/22 11:23:00 EDT, Cream, [place], [place] - [id number], Partial fill upon patient request if the [...] 07/27/21 22:03:00 EDT, Route to Pharmacy Electronically, [place], [place] - [id number], Partial fill upon... Start Date: 07/27/21 Stop [...] tablet, 0 Refills, Maintenance, 11/23/21 14:02:00 EDT, [facility], 155, cm, 11/10/21 8:02:00 EDT, Height, 90, kg, 07/27/21 21:54:00 EDT, Dry Weight Start Date: 11/23/21 Status: Orderedloratadine 10 mg oral tablet 1, tablet, By Mouth, Daily, # 30 tablet, Refills 5, Route to Pharmacy Electronically, [facility], 155, cm, 07/27/21 21:54:00 EDT, Height, 90, kg, 07/27/21 21:54:00 EDT, Dry Weight Start Date: 08/07/21 Status: OrderedMetoprolol Tartrate 50 mg oral tablet 1 tablet, By Mouth, 2 times a day, DOSE INCREASE, # 180 tablet, 1 Refills, [facility], 153, cm,02/15/21 16:52:00 EST, Height, 89.4, kg, 02/15/21 16:56:00 EST, Dry Weight Start Date: 03/21/21 Status: OrderedMiraLax oral powder for reconstitution = 17 Gm, By Mouth, 2 times a day, dissolve in water before taking titrate to 1-2 smooth bowel movements daily without straining, # 527 Gm, 1 Refills, Maintenance, 11/29/21 8:47:00 EDT, REC Powder, [facility] [id number], Par... Start Date: 11/29/21 Status: OrderedNarcan 4 mg/0.1 mL nasal spray See Instructions, 4 mg intranasally for opiate overdose may repeat every 2 to 3 minutes until patient responds, # 2 each, 1 Refills, Soft Stop, 12/15/21 14:41:00 EDT, [facility] [id number], Partial fill upon patient reque... Start Date: [...] PRN Pain , Severe, dose increase checked masslashaun, # 84 tablet, 0 Refills, Maintenance, 12/07/21 10:22:00 EDT, [facility] [id number], taking increased dose due to injury, checked ma... Start Date: 12/07/21 Status: Orderedpregabalin 50 mg oral capsule See Instructions, TAKE TWO CAPSULES BY MOUTH EVERY MORNING AND TAKE 5 CAPSULES BY MOUTH EVERY NIGHT AT BEDTIME checked masspat, # 196 capsule, 1 Refills, Maintenance, 10/25/21 13:12:00 EDT, [facility], [facility] [id number], 155, cm, 0... Start Date: 10/25/21 Status: [...] 10/28/20 17:37:00 EDT, Route to Pharmacy Electronically, [facility] [id number], 153, cm, 10/28/20 14:26:00 EDT, Height, 85.1... [...] Active Severe persistent Confirmed Active asthma Sleep apnea[facility] Confirmed Active 16 cm Uterine fibroid Confirmed Active Vitamin D deficiency Confirmed Active 1pos bronchial challenge /p surgery [id number] 09/2020 Social History Social History Type Response Smoking Status 5-9 cigarettes (between 1/4 to 1/2 pack)/day in last 30 days; Interested in cessation: Yes; Other: was using the gum , didnt like the taste and only worked briefly. Using nicotine lollipops now though from [place].; entered on: 08/17/20 Sex Patient Care team information PersonnelName: Kodak Callahan MD Address: Address: [address] [place] [address] Adult & Pediatric Medicine [place], [place] [address]
--- OUTSIDE RECORDS SUMMARY | 2022-01-24 13:57 | XMS_ITS | Continuity of Care Document ---
:1965 Author Organization [facility] Address [address] [place] [address]- Care Team Providers Name Role Phone Kodak Callahan MD Primary Care Physician Encounter [facility] [place] Date(s): 04/29/21 - 05/29/21 [facility] [address] [place] [address] Attending Physician: AdmtrCarlin Admitting Physician: Admtr, Ar8 Referring Physician: Admtr, Ar8 Allergies, Adverse Reactions, Alerts Substance Reaction Severity [...] adult vaccine 06/21/11 Recorded 1Result Comment: [facility] [place]: [phone] Note: CDC info [id number] Note: vis given 08/02/06 Medications Adult pull [...] a day, # 60 tablet, 5 Refills, [facility], 30, TAKE ONE TABLET BY [...] May repeat x 1 on arrival to [facility] if needed., # 2 tablet, Refills [...] 1 Refills, Maintenance, 02/24/21 22:43:00 EST, Tablet, [facility] [id number], Partial fill upon patient request if the prescription is for a cooper... Start Date: 02/24/21 Status: Orderedlidocaine 4% topical film 1 patch, Topically, 2 times a day, # 12 each, 0 Refills, Maintenance, 09/28/20 13:53:00 EDT, Film, [facility] [id number], Partial fill upon patient request if the prescription is for a schedule II opioid drug., 1 patch Topical... Start Date: 09/28/20 Status: Orderedloratadine 10 mg oral tablet 10 mg, 1, tablet, By Mouth, Daily, # 30 tablet, Refills 5, Tot. Refills 5, Maintenance, 01/27/21 13:23:00 EST, Route to Pharmacy Electronically, [facility] [id number], Partial fill upon patient request if the prescription is f... Start Date: 01/27/21 Status: OrderedMetoprolol Tartrate 50 mg oral tablet 1 tablet, By Mouth, 2 times a day, DOSE INCREASE, # 180 tablet, 1 Refills, [facility], 153, cm,02/15/21 16:52:00 EST, Height, 89.4, kg, 02/15/21 16:56:00 EST, Dry Weight Start Date: 03/21/21 Status: OrderedNuLYTELY with Flavor Packs oral powder for reconstitution See Instructions, Drink 240mL every 15-20 minutes until first half is gone. Repeat 6 hours prior to procedure., # 4,000 mL, 0 Refills, Maintenance, 10/21/20 12:57:00 EDT, [facility] [id number], Drink 240mL every 15-20 minutes... Start Date: [...] PAIN, # 56 tablet, 0 Refills, Maintenance, 05/19/21 13:18:00 EST, [facility] [id number], 153, cm, 04/29/21 9:27:00 EST, Height, 88.8, kg, 04/29/21 9... Start Date: 05/19/21 Status: OrderedP-5 Ketamine 10%,baclofen2%, cyclobenzaprine2%,Diclofenac3%,Flyawfikiw65%,Bupivacaine2% topicalcrea P-5 Ketamine 10%,baclofen2%, cyclobenzaprine2%,Diclofenac3%,Yussgbzzre76%,Bupivacaine2% topicalcream, See Instructions, # 240 Gm, Refills 1, Tot. Refills 1, Maintenance, 1-3 gms (pumps) to affected area 3-4 times a day, 10/27/19 14:52:00 EDT, Compound... Start Date: 10/27/19 Status: Orderedpregabalin 50 mg oral capsule See Instructions, 1 cap PO qAM and 5 caps PO qHS. Dose increase., # 180 capsule, 1 Refills, Maintenance, 04/18/21 22:56:00 EST, [place], [place] - [id number], 153, cm, 02/15/21 16:52:00 EST, Height, 89.4, kg, 02/15/21 16:56:00 EST, Start Date: 04/18/21 Status: OrderedProAir HFA Inhalation, [...] 10/28/20 17:37:00 EDT, Route to Pharmacy Electronically, [facility], [place] - [id number], 153, cm, 10/28/20 14:26:00 EDT, Height, 85.1... [...] Vitamin D deficiency(Confirmed) Active 1pos bronchial challenge 96894a/p surgery [id number] 09/2020 Social History Social History Type Response Smoking Status 5-9 cigarettes (between 1/4 to 1/2 pack)/day in last 30 days; Interested in cessation: Yes; Other: was using the gum , didnt like the taste and only worked briefly. Using nicotine lollipops now though from [place].; entered on: 08/17/20 Sex
--- OUTSIDE RECORDS SUMMARY | 2022-01-24 13:57 | XMS_ITS | Continuity of Care Document ---
:1965 Author Organization [facility] Address [address] [place] [address]- Care Team Providers Name Role Phone Sarah Sanderson Primary Care Physician [place] [facility] [place] Date(s): 12/04/19 - 01/18/20 [facility] [address] [place] [address] Attending Physician: Brittani Dutton MD Admitting Physician: Brittani Dutton MD Referring Physician: Sarah Sanderson Allergies, Adverse Reactions, Alerts Substance Reaction Severity Status doxycycline1 hives Active Spiriva Active traMADol swelling and hives Active 1hives Immunizations Given and Recorded Vaccine Date Status Refusal Reason Fluzone (oldterm)1 01/05/14 Given tetanus/diphtheria/pertussis, acel(Tdap)2 02/07/13 Given influenza virus vaccine, inactivated 01/01/13 Given 1Admin Note: CDC info [id number] Note: vis given 08/02/06 Medications Acetaminophen 0 [...] 11:11:30 EDT, Inhaler, Route to Pharmacy Electronically, [id number], [facility]/pharmacy#[id number] Start Date: 05/27/18 Stop Date: 02/21/19 Status: [...] Start Date: 01/05/14 Status: OrderedP-5 Ketamine 10%,baclofen2%, cyclobenzaprine2%,Diclofenac3%,Ebjptxiyrf86%,Bupivacaine2% topicalcrea P-5 Ketamine 10%,baclofen2%, cyclobenzaprine2%,Diclofenac3%,Ybwxdinxin79%,Bupivacaine2% topicalcream, See Instructions, # 240 Gm, Refills [...]
--- OUTSIDE RECORDS SUMMARY | 2022-01-24 13:57 | XMS_ITS | Continuity of Care Document ---
:1965 Author Organization [facility] Address [address] [place] [address]- Care Team Providers Name Role Phone Kodak Callahan MD Primary Care Physician Encounter [facility] Date(s): 01/12/21 - 02/11/21 [facility] [address] [place], [place] [address] Allergies, Adverse Reactions, Alerts Substance Reaction [...] B adult vaccine 06/21/11 Recorded 1Result Comment: [facility] [place]: [phone] Note: CDC info [id number] Note: vis given 08/02/06 Medications Acetaminophen 0 [...] 5 Refills, Maintenance, 10/20/20 10:23:00 EDT, Tablet, [place], [place] - [id number], Partial fill upon patient request if the [...] May repeat x 1 on arrival to [facility] if needed., # 2 tablet, [...] AM, # 30 tablet, 0 Refills, Maintenance, 01/13/21 14:21:00 EDT, [facility] [id number], patient needs to repeat labs, please advise when she picks up script, g[facility], 153, cm, 11/19/20 8:43:00 EDT, H... Start Date: 01/13/21 Status: Orderedlidocaine 4% topical film 1 patch, Topically, 2 times a day, # 12 each, 0 Refills, Maintenance, 09/28/20 13:53:00 EDT, Film, [facility] [id number], Partial fill upon patient request if the prescription is for a schedule II opioid drug., 1 patch Topical... Start Date: 09/28/20 Status: Orderedloratadine 10 mg oral tablet 10 mg, 1, tablet, By Mouth, Daily, # 30 tablet, Refills 5, Tot. Refills 5, Maintenance, 01/27/21 13:23:00 EST, Route to Pharmacy Electronically, [facility] [id number], Partial fill upon patient request if the prescription is f... Start Date: 01/27/21 Status: OrderedMetoprolol Tartrate 50 mg oral tablet 1 tablet = 50 mg, By Mouth, 2 times a day, dose increase, # 180 tablet, 1 Refills, Maintenance, 09/14/20 8:52:00 EDT, Tablet, [facility] [id number], Partial fill upon patient request if the prescription is for a schedule II op... Start Date: 09/14/20 Status: OrderedNuLYTELY with Flavor Packs oral powder for reconstitution See Instructions, Drink 240mL every 15-20 minutes until first half is gone. Repeat 6 hours prior to procedure., # 4,000 mL, 0 Refills, Maintenance, 10/21/20 12:57:00 EDT, [facility] [id number], Drink 240mL every 15-20 minutes... Start Date: [...] 0 Refills, Maintenance, 01/03/21 16:09:00 EDT, Tablet, [facility] [id number], Partial fill upon patient request if the prescription is for a sched... Start Date: 01/03/21 Status: OrderedoxyCODONE 10 mg oral tablet See Instructions, TAKE ONE TABLET BY MOUTH two (2) times a day NEEDED FOR PAIN, # 56 tablet, 0 Refills, Maintenance, 01/31/21 17:09:00 EST, [facility] [id number], 153, cm, 01/25/21 14:26:00 EST, Height, 85.1, kg, 10/28/20... Start Date: 01/31/21 Status: OrderedP-5 Ketamine 10%,baclofen2%, cyclobenzaprine2%,Diclofenac3%,Ywiswtfzop91%,Bupivacaine2% topicalcrea P-5 Ketamine 10%,baclofen2%, cyclobenzaprine2%,Diclofenac3%,Ylphosnbvn76%,Bupivacaine2% topicalcream, See Instructions, # 240 Gm, Refills 1, Tot. Refills 1, Maintenance, 1-3 gms (pumps) to affected area 3-4 times a day, 10/27/19 14:52:00 EDT, Compound... Start Date: 10/27/19 Status: Orderedpregabalin 50 mg oral capsule See Instructions, TAKE ONE CAPSULE BY MOUTH EVERY MORNING AND TAKE THREE CAPSULES BY MOUTH EVERY EVENING, # 120 capsule, 0 Refills, Maintenance, 01/19/21 8:26:00 EDT, [facility] [id number], 153, cm, 11/19/20 8:43:00 EDT, [facility]... Start Date: 01/19/21 Status: Orderedpregabalin 50 mg oral capsule See Instructions, 1 cap PO qAM, 4 caps PO qHS. Dose increase. Please fill when patient next due., # 150 capsule, 1 Refills, Maintenance, 02/01/21 9:05:00 EST, [facility] [id number], 153, cm, 02/01/21 8:58:00 EST, Height, 85.1,... Start Date: 02/01/21 Status: OrderedProAir HFA Inhalation, 4 times a day, 0 Refills, Maintenance Start Date: 08/17/11 Status: OrderedSingulair 10 mg oral tablet 10 mg, 1, tablet, By Mouth, Daily before dinner, # 90 tablet, Refills 0, Tot. Refills 0, Maintenance, 10/28/20 17:37:00 EDT, Route to Pharmacy Electronically, [facility] [place], [place] - [id number], 153, cm, 10/28/20 14:26:00 EDT, Height, 85.1... [...] deficiency(Confirmed) Active 1pos bronchial challenge /p surgery [id number] 09/2020 Social History Social History Type Response Smoking Status 5-9 cigarettes (between 1/4 to 1/2 pack)/day in last 30 days; Interested in cessation: Yes; Other: was using the gum , didnt like the taste and only worked briefly. Using nicotine lollipops now though from [place].; entered on: 08/17/20 Sex
--- OUTSIDE RECORDS SUMMARY | 2022-01-24 13:57 | XMS_ITS | Continuity of Care Document ---
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 Attending Physician: Kodak Callahan MD Allergies, Adverse [...] B adult vaccine 06/21/11 Recorded 1Result Comment: [facility]: [phone] Note: CDC info [id number] Note: vis given 08/02/06 Medications Acetaminophen 0 [...] 5 Refills, Maintenance, 10/20/20 10:23:00 EDT, Tablet, [place], [place] - [id number], Partial fill upon patient request if the [...] Replace Required Details, Route to Pharmacy Electronically, [facility] Start Date: 11/15/20 Status: OrderedhydrALAZINE 25 mg [...] tablet, 0 Refills, Maintenance, 01/13/21 14:21:00 EDT, [facility] [id number], patient needs to repeat labs, please advise when she picks up ghislaine brito 153, cm, 11/19/20 8:43:00 EDT, H... Start Date: 01/13/21 Status: Orderedlidocaine 4% topical film 1 patch, Topically, 2 times a day, # 12 each, 0 Refills, Maintenance, 09/28/20 13:53:00 EDT, Film, [place], [place] - [id number], Partial fill upon patient request if the prescription is for a schedule II opioid drug., 1 patch Topical... Start Date: 09/28/20 Status: Orderedloratadine 10 mg oral tablet 10 mg, 1, tablet, By Mouth, Daily, # 30 tablet, Refills 5, Tot. Refills 5, Maintenance, 01/27/21 13:23:00 EST, Route to Pharmacy Electronically, [facility] [id number], Partial fill upon patient request if the prescription is f... Start Date: 01/27/21 Status: OrderedMetoprolol Tartrate 50 mg oral tablet 1 tablet = 50 mg, By Mouth, 2 times a day, dose increase, # 180 tablet, 1 Refills, Maintenance, 09/14/20 8:52:00 EDT, Tablet, [facility] [id number], Partial fill upon patient request if the prescription is for a schedule II op... Start Date: 09/14/20 Status: OrderedNuLYTELY with Flavor Packs oral powder for reconstitution See Instructions, Drink 240mL every 15-20 minutes until first half is gone. Repeat 6 hours prior to procedure., # 4,000 mL, 0 Refills, Maintenance, 10/21/20 12:57:00 EDT, [facility] [id number], Drink 240mL every 15-20 minutes... Start Date: [...] 0 Refills, Maintenance, 01/03/21 16:09:00 EDT, Tablet, [facility], [facility] [id number], Partial fill upon patient request if the prescription is for a sched... Start Date: 01/03/21 Status: OrderedoxyCODONE 10 mg oral tablet See Instructions, TAKE ONE TABLET BY MOUTH two (2) times a day NEEDED FOR PAIN, # 56 tablet, 0 Refills, Maintenance, 01/31/21 17:09:00 EST, [facility], [facility] [id number], 153, cm, 01/25/21 14:26:00 EST, Height, 85.1, kg, 10/28/20... Start Date: 01/31/21 Status: OrderedP-5 Ketamine 10%,baclofen2%, cyclobenzaprine2%,Diclofenac3%,Vwwtpfvtad10%,Bupivacaine2% topicalcrea P-5 Ketamine 10%,baclofen2%, cyclobenzaprine2%,Diclofenac3%,Wqkcdhcrug48%,Bupivacaine2% topicalcream, See Instructions, # 240 Gm, Refills 1, Tot. Refills 1, Maintenance, 1-3 gms (pumps) to affected area 3-4 times a day, 10/27/19 14:52:00 EDT, Compound... Start Date: 10/27/19 Status: Orderedpregabalin 50 mg oral capsule See Instructions, TAKE ONE CAPSULE BY MOUTH EVERY MORNING AND TAKE THREE CAPSULES BY MOUTH EVERY EVENING, # 120 capsule, 0 Refills, Maintenance, 01/19/21 8:26:00 EDT, [facility], [facility] [id number], 153, cm, 11/19/20 8:43:00 EDT, Heigh... Start Date: 01/19/21 Status: Orderedpregabalin 50 mg oral capsule See Instructions, 1 cap PO qAM, 4 caps PO qHS. Dose increase. Please fill when patient next due., # 150 capsule, 1 Refills, Maintenance, 02/01/21 9:05:00 EST, [facility], [facility] [id number], 153, cm, 02/01/21 8:58:00 EST, Height, 85.1,... Start Date: 02/01/21 Status: OrderedProAir HFA Inhalation, 4 times a day, 0 Refills, Maintenance Start Date: 08/17/11 Status: OrderedSingulair 10 mg oral tablet 10 mg, 1, tablet, By Mouth, Daily before dinner, # 90 tablet, Refills 0, Tot. Refills 0, Maintenance, 10/28/20 17:37:00 EDT, Route to Pharmacy Electronically, [place], [place] - [id number], 153, cm, 10/28/20 14:26:00 EDT, Height, 85.1... [...] deficiency(Confirmed) Active 1pos bronchial challenge /p surgery [id number] 09/2020 Diagnosis Diagnosis Type Effective Dates Health Clinical Infor mant Status Service Asthma exacerbation Discharge 02/02/21 Diagnosis Chest wall pain, Discharge 02/02/21 chronic Diagnosis Hypertensive Discharge 02/02/21 disorder Diagnosis Gadiel's Discharge 02/02/21 thyroiditis Diagnosis Vital Signs Most recent to oldest [Reference Range]: 1 2 Height 153 cm 153 cm (02/01/21 8:58 AM) (02/01/21 8:24 AM) Weight 88.0 kg (02/01/21 8:24 AM) Oxygen Saturation [94-100 %] 96 % 98 % (02/01/21 8:58 AM) (02/01/21 8:24 AM) Pulse Rate [55-90 bpm] 80 bpm (02/01/21 8:24 AM) Body Mass Index [18.5-24.99] 37.59 *>HHI* (02/01/21 8:24 AM) Blood Pressure [90-138/55-84 mm Hg] 151/92 mm Hg *H* (02/01/21 8:24 AM) Blood pressure sites Arm, right (02/01/21 8:24 AM) Social History Social History Type Response Smoking Status 5-9 cigarettes (between 1/4 to 1/2 pack)/day in last 30 days; Interested in cessation: Yes; Other: was using the gum , didnt like the taste and only worked briefly. Using nicotine lollipops now though from [place].; entered on: 08/17/20 Sex
--- OUTSIDE RECORDS SUMMARY | 2022-01-24 13:57 | XMS_ITS | Continuity of Care Document ---
:1965 Author Organization [facility] Address [address] [place] [address]- Care Team Providers Name Role Phone Kodak Callahan MD Primary Care Physician Encounter [facility] [place] Date(s): 09/28/20 - 09/28/[address] [address]- Encounter Diagnosis Chest wall pain (Final) - 09/28/20 Discharge Disposition: A-D/C Home Attending Physician: Syd Ghosh MD Admitting Physician: Syd Ghosh MD Referring Physician: Not on Staff, Referring MD Allergies, Adverse Reactions, Alerts Substance Reaction [...] vaccine 06/21/11 Recorded 1Admin Note: CDC info [id number] Note: vis given 08/02/06 Medications Acetaminophen 0 Refills, Maintenance, 08/08/19 8:53:00 EDT Start Date: 08/08/19 Status: Orderedacetaminophen-oxycodone 325 mg-10 mg oral tablet 1 tablet, By Mouth, 2 times a day, PRN for pain, # 14 tablet, 0 Refills, Acute 11/14/20 8:58:00 EDT,09/14/20 8:57:00 EDT, Tablet, [place], [place] - [id number], Partial fill upon patient request if the prescription is for a schedule... Start Date: 09/14/20 Stop Date: 11/14/20 Status: Orderedalbuterol 0.083% inhalation solution 3 mL [...] Replace Required Details Start Date: 05/25/18 Status: Orderedgabapentin 300 mg oral capsule 300 mg, Capsule, By Mouth, Once, STAT, 09/28/20 11:52:00 EDT, Stop date 09/28/20 11:52:00 EDT Start Date: 09/28/20 Stop Date: 09/28/20 Status: CompletedhydrALAZINE 25 mg oral tablet 25 mg, 1, [...] Maintenance, 09/16/20 14:31:00 EDT, Capsule, [facility] [id number], Partial fill upon patient request if the prescription is for a schedule II... Start Date: 09/16/20 Status: Orderedlidocaine 4% topical film 1 patch, Topically, 2 times a day, # 12 each, 0 Refills, Maintenance, 09/28/20 13:53:00 EDT, Film, [facility] [id number], Partial fill upon patient request if the [...] Maintenance, 09/14/20 8:52:00 EDT, Tablet, [facility] [id number], Partial fill upon patient request if the [...] tablet = 10 mg, By Mouth, Every 6 hours, PRN as needed for pain, # 10 tablet, 0 Refills, Maintenance, 09/28/20 13:53:00 EDT, Tablet, [place], [place] - [id number], Partial fill upon patient request if the prescription is for a sched... Start Date: 09/28/20 Status: OrderedP-5 Ketamine 10%,baclofen2%, cyclobenzaprine2%,Diclofenac3%,Wnnlehudib38%,Bupivacaine2% topicalcrea P-5 Ketamine 10%,baclofen2%, cyclobenzaprine2%,Diclofenac3%,Lcbkxzhfsg29%,Bupivacaine2% topicalcream, See Instructions, # 240 Gm, Refills [...] Chest wall pain, chronic(Confirmed)2 Active Depression(Confirmed) Active GERD (gastroesophageal reflux Active disease)(Confirmed) Gadiel's thyroiditis(Confirmed) Active Hyperlipidemia(Confirmed) Active Hypertensive disorder(Confirmed) Active Severe persistent asthma(Confirmed) Active Sleep ap[facility] 16 cm(Confirmed) Active Vitamin D deficiency(Confirmed) Active 1pos bronchial challenge /p surgery 2019 Results Radiology Reports Exam Date Time Procedure Performing Provider Status 09/28/20 10:31 AM Chest Portable Kimberly Amos; Auth ([facility] ed) Notes:(Chest Portable) Reason For Exam: Shortness of BreathRESULT: Chest Portable Chest Portable Hx of Present Illness: : chest pain since last night; Reason: Shortness of Breath; Clinical Question(s): CHF COMPARISON: Prior chest radiographs, most recently May 25, 2018. FINDINGS: LINES AND TUBES: None. LUNGS AND PLEURA: Clear lungs. Normal pulmonary vascularity. No pleural effusion. No pneumothorax. HEART, MEDIASTINUM AND SEAN: Heart is normal in size. Normal upper mediastinal and hilar contour. BONES AND SOFT TISSUES: No acute abnormality. Surgical clip projects over the right upper chest. IMPRESSION: No acute abnormality. WSN: [id number] Ordering Physician: Mckinley Pfeiffer Dictated By: Troy Patricia MD Dictated Date/Time: 09/28/20 10:33 a Reviewed By: Troy Patricia MD Signed By: Troy Patricia MD Signed Date/Time: 09/28/20 10:33 am Transcribed By: NELSON Transcribed Date/Time: 09/28/20 10:33 am Vital Signs Most recent to oldest 1 2 3 [Reference Range]: Weight 83 kg 83 kg 83 kg (09/28/20 2:06 PM) (09/28/20 1:19 PM) (09/28/20 11: 09 AM) Oxygen Saturation [94-100 %] 96 % 98 % 99 % (09/28/20 2:06 PM) (09/28/20 1:19 PM) (09/28/20 11: 09 AM) Pulse Rate [55-90 bpm] 79 bpm 80 bpm 79 bpm (09/28/20 2:06 PM) (09/28/20 1:19 PM) (09/28/20 11: 09 AM) Blood Pressure [90-138/55-84 99/61 mm Hg 136/79 mm Hg 139 /83 mm Hg mm Hg] (09/28/20 2:06 PM) (09/28/20 1:19 PM) *H* (09/28/20 11:09 A M) Respiratory Rate [16-30 18 br/min 18 br/min 16 br/mi n br/min] (09/28/20 2:06 PM) (09/28/20 1:21 PM) (09/28/20 1:1 9 PM) Temperature [96.8-100.4 DegF] 98.1 DegF 98.1 DegF 98 DegF (09/28/20 2:06 PM) (09/28/20 1:19 PM) (09/28/20 11: 09 AM) Liters per Minute 0 L/min (09/28/20 9:06 AM) Mode of Delivery (Oxygen) Room air Room air Room a ir (09/28/20 2:06 PM) (09/28/20 1:19 PM) (09/28/20 11: 09 AM) Blood pressure sites Arm, left Arm, left Arm, left (09/28/20 2:06 PM) (09/28/20 1:19 PM) (09/28/20 11: 09 AM) Temperature Route Oral Oral Oral (09/28/20 2:06 PM) (09/28/20 1:19 PM) (09/28/20 11: 09 AM) Dry Weight 83 kg 83 kg 83 kg (09/28/20 2:06 PM) (09/28/20 1:19 PM) (09/28/20 11: 09 AM) Weight Obtained Via Standing scale (09/28/20 9:06 AM) Dry Weight Obtained Via Standing scale (09/28/20 9:06 AM) Social History Social History Type Response Smoking Status 5-9 cigarettes (between 1/4 to 1/2 pack)/day in last 30 days; Interested in cessation: Yes; Other: was using the gum , didnt like the taste and only worked briefly. Using nicotine lollipops now though from [place].; entered on: 08/17/20 Sex
--- OUTSIDE RECORDS SUMMARY | 2022-01-24 13:57 | XMS_ITS | Continuity of Care Document ---
:1965 Author Organization [facility] Address [address] [place] [address]- Care Team Providers Name Role Phone London BORGES, Kodak Oh Primary Care Physician Encounter [facility] Date(s): 03/01/21 - 03/31/21 [facility] [address] [place], [place] [address] Allergies, Adverse Reactions, Alerts Substance Reaction [...] B adult vaccine 06/21/11 Recorded 1Result Comment: [facility]: [phone] Note: CDC info [id number] Note: vis given 08/02/06 Medications Acetaminophen 0 [...] 5 Refills, Maintenance, 10/20/20 10:23:00 EDT, Tablet, [place], [place] - [id number], Partial fill upon patient request if the [...] May repeat x 1 on arrival to [facility] if needed., # 2 tablet, Refills [...] 1 Refills, Maintenance, 02/24/21 22:43:00 EST, Tablet, [facility] [id number], Partial fill upon patient request if the prescription is for a cooper... Start Date: 02/24/21 Status: Orderedlidocaine 4% topical film 1 patch, Topically, 2 times a day, # 12 each, 0 Refills, Maintenance, 09/28/20 13:53:00 EDT, Film, [facility] [id number], Partial fill upon patient request if the prescription is for a schedule II opioid drug., 1 patch Topical... Start Date: 09/28/20 Status: Orderedloratadine 10 mg oral tablet 10 mg, 1, tablet, By Mouth, Daily, # 30 tablet, Refills 5, Tot. Refills 5, Maintenance, 01/27/21 13:23:00 EST, Route to Pharmacy Electronically, [facility] [id number], Partial fill upon patient request if the prescription is f... Start Date: 01/27/21 Status: OrderedMetoprolol Tartrate 50 mg oral tablet 1 tablet, By Mouth, 2 times a day, DOSE INCREASE, # 180 tablet, 1 Refills, [facility], 153, cm,02/15/21 16:52:00 EST, Height, 89.4, kg, 02/15/21 16:56:00 EST, Dry Weight Start Date: 03/21/21 Status: OrderedNuLYTELY with Flavor Packs oral powder for reconstitution See Instructions, Drink 240mL every 15-20 minutes until first half is gone. Repeat 6 hours prior to procedure., # 4,000 mL, 0 Refills, Maintenance, 10/21/20 12:57:00 EDT, [facility] [id number], Drink 240mL every 15-20 minutes... Start Date: [...] tablet, 0 Refills, Maintenance, 03/28/21 22:06:00 EST, [facility] [id number], 03/29/21, 153, cm, 02/15/21 16:52:00 EST, Height, 89.4, kg,... Start Date: 03/28/21 Status: OrderedP-5 Ketamine 10%,baclofen2%, cyclobenzaprine2%,Diclofenac3%,Iasbblyize85%,Bupivacaine2% topicalcrea P-5 Ketamine 10%,baclofen2%, cyclobenzaprine2%,Diclofenac3%,Hkmplqhydb52%,Bupivacaine2% topicalcream, See Instructions, # 240 Gm, Refills 1, Tot. Refills 1, Maintenance, 1-3 gms (pumps) to affected area 3-4 times a day, 10/27/19 14:52:00 EDT, Compound... Start Date: 10/27/19 Status: Orderedpregabalin 50 mg oral capsule See Instructions, TAKE ONE CAPSULE BY MOUTH EVERY MORNING AND TAKE THREE CAPSULES BY MOUTH EVERY EVENING, # 120 capsule, 0 Refills, Maintenance, 01/19/21 8:26:00 EDT, [facility] [id number], 153, cm, 11/19/20 8:43:00 EDT, [facility]... Start Date: 01/19/21 Status: Orderedpregabalin 50 mg oral capsule See Instructions, 1 cap PO qAM, 4 caps PO qHS. Dose increase. Please fill when patient next due., # 150 capsule, 1 Refills, Maintenance, 02/01/21 9:05:00 EST, [facility] [id number], 153, cm, 02/01/21 8:58:00 EST, Height, 85.1,... Start Date: 02/01/21 Status: OrderedProAir HFA Inhalation, 4 times a day, 0 Refills, Maintenance Start Date: 08/17/11 Status: OrderedSingulair 10 mg oral tablet 10 mg, 1, tablet, By Mouth, Daily before dinner, # 90 tablet, Refills 0, Tot. Refills 0, Maintenance, 10/28/20 17:37:00 EDT, Route to Pharmacy Electronically, [facility] [id number], 153, cm, 10/28/20 14:26:00 EDT, Height, 85.1... [...] deficiency(Confirmed) Active 1pos bronchial challenge /p surgery [id number] 09/2020 Social History Social History Type Response Smoking Status 5-9 cigarettes (between 1/4 to 1/2 pack)/day in last 30 days; Interested in cessation: Yes; Other: was using the gum , didnt like the taste and only worked briefly. Using nicotine lollipops now though from [place].; entered on: 08/17/20 Sex
--- OUTSIDE RECORDS SUMMARY | 2022-01-24 13:57 | XMS_ITS | Continuity of Care Document ---
:1965 Author Organization [facility] Address [address] [place] [address]- Care Team Providers Name Role Phone Kodak Callahan MD Primary Care Physician Encounter [facility] [place] Date(s): 10/14/20 - 11/13/20 [facility] [address] [place], [place] [address] Allergies, Adverse Reactions, Alerts Substance [...] vaccine 06/21/11 Recorded 1Admin Note: CDC info [id number] Note: vis given 08/02/06 Medications Acetaminophen 0 [...] 5 Refills, Maintenance, 10/20/20 10:23:00 EDT, Tablet, [place], [place] - [id number], Partial fill upon patient request if the [...] 1 Refills, Maintenance, 09/16/20 14:31:00 EDT, Capsule, [facility] [id number], Partial fill upon patient request if the prescription is for a schedule II... Start Date: 09/16/20 Status: Orderedlidocaine 4% topical film 1 patch, Topically, 2 times a day, # 12 each, 0 Refills, Maintenance, 09/28/20 13:53:00 EDT, Film, [facility] [id number], Partial fill upon patient request if the [...] 1 Refills, Maintenance, 09/14/20 8:52:00 EDT, Tablet, [facility] [id number], Partial fill upon patient request if the prescription is for a schedule II op... Start Date: 09/14/20 Status: OrderedNuLYTELY with Flavor Packs oral powder for reconstitution See Instructions, Drink 240mL every 15-20 minutes until first half is gone. Repeat 6 hours prior to procedure., # 4,000 mL, 0 Refills, Maintenance, 10/21/20 12:57:00 EDT, [place], [place] - [id number], Drink 240mL every 15-20 minutes... Start Date: [...] 0 Refills, Maintenance, 11/03/20 7:21:00 EDT, Tablet, [place], [place] - [id number], Partial fill upon patient request if the prescription is for a schedu... Start Date: 11/03/20 Status: OrderedP-5 Ketamine 10%,baclofen2%, cyclobenzaprine2%,Diclofenac3%,Dzyscmzfqn02%,Bupivacaine2% topicalcrea P-5 Ketamine 10%,baclofen2%, cyclobenzaprine2%,Diclofenac3%,Rzcmxvqpxq12%,Bupivacaine2% topicalcream, See Instructions, # 240 Gm, Refills 1, Tot. Refills 1, Maintenance, 1-3 gms (pumps) to affected area 3-4 times a day, 10/27/19 14:52:00 EDT, Compound... Start Date: 10/27/19 Status: Orderedpregabalin 50 mg oral capsule See Instructions, 1 cap PO qAM, 3 caps PO qPM, # 120 capsule, 1 Refills, Maintenance, 11/02/20 9:11:00 EDT, [facility] [place] - [id number], 153, cm, 10/28/20 14:26:00 EDT, Height, 85.1,kg, 10/28/20 14:26:00 EDT, Dry Weight Start Date: 11/02/20 Status: OrderedProAir HFA Inhalation, 4 times a day, 0 Refills, Maintenance Start Date: 08/17/11 Status: OrderedSingulair 10 mg oral tablet 10 mg, 1, tablet, By Mouth, Daily before dinner, # 90 tablet, Refills 0, Tot. Refills 0, Maintenance, 10/28/20 17:37:00 EDT, Route to Pharmacy Electronically, [place], [place] - [id number], 153, cm, 10/28/20 14:26:00 EDT, Height, 85.1... [...] deficiency(Confirmed) Active 1pos bronchial challenge /p surgery [id number] 09/2020 Social History Social History Type Response Smoking Status 5-9 cigarettes (between 1/4 to 1/2 pack)/day in last 30 days; Interested in cessation: Yes; Other: was using the gum , didnt like the taste and only worked briefly. Using nicotine lollipops now though from [place].; entered on: 08/17/20 Sex
--- OUTSIDE RECORDS SUMMARY | 2022-01-24 13:57 | XMS_ITS | Continuity of Care Document ---
:1965 Author Organization [facility] Address [address] [place] [address], [address] [place] [address]- Care Team Providers Name Role Phone London BORGES, Kodak Oh Primary Care Physician Encounter [facility] Date(s): 11/24/20 - 12/24/20 [facility] [address] [place] [address], [address] [place] [id number] Attending Physician: Carlin Adams Admitting Physician: AdmCarlin blandon Referring Physician: Admtr Ar8 Allergies, Adverse Reactions, Alerts Substance Reaction [...] vaccine 06/21/11 Recorded 1Admin Note: CDC info [id number] Note: vis given 08/02/06 Medications Acetaminophen 0 [...] 5 Refills, Maintenance, 10/20/20 10:23:00 EDT, Tablet, [place], [place] - [id number], Partial fill upon patient request if the [...] May repeat x 1 on arrival to [facility] if needed., # 2 tablet, Refills 0, Tot. Refills 0, Maintenance, 11/15/20 12:49:00 EDT, Instructions Replace Required Details, Route to Pharmacy Electronically, [facility] Start Date: 11/15/20 Status: OrderedhydrALAZINE 25 mg [...] 1 Refills, Maintenance, 11/18/20 12:51:00 EDT, Tablet, [facility] [id number], Partial fill upon patient request if the prescriptio... Start Date: 11/18/20 Status: Orderedlidocaine 4% topical film 1 patch, Topically, 2 times a day, # 12 each, 0 Refills, Maintenance, 09/28/20 13:53:00 EDT, Film, [facility] [id number], Partial fill upon patient request if the prescription is for a schedule II opioid drug., 1 patch Topical... Start Date: 09/28/20 Status: Orderedloratadine 10 mg oral tablet 10 mg, 1, tablet, By Mouth, Daily, # 30 tablet, Refills 1, Tot. Refills 1, Maintenance, 12/06/20 13:03:00 EDT, Route to Pharmacy Electronically, [facility] [id number], Partial fill upon patient request if the [...] 1 Refills, Maintenance, 09/14/20 8:52:00 EDT, Tablet, [facility] [id number], Partial fill upon patient request if the prescription is for a schedule II op... Start Date: 09/14/20 Status: OrderedNuLYTELY with Flavor Packs oral powder for reconstitution See Instructions, Drink 240mL every 15-20 minutes until first half is gone. Repeat 6 hours prior to procedure., # 4,000 mL, 0 Refills, Maintenance, 10/21/20 12:57:00 EDT, [facility] [id number], Drink 240mL every 15-20 minutes... Start Date: [...] 0 Refills, Maintenance, 12/06/20 13:04:00 EDT, Tablet, [facility] [id number], Partial fill upon patient request if the prescription is for a sched... Start Date: 12/06/20 Status: OrderedP-5 Ketamine 10%,baclofen2%, cyclobenzaprine2%,Diclofenac3%,Wchavxcuoz94%,Bupivacaine2% topicalcrea P-5 Ketamine 10%,baclofen2%, cyclobenzaprine2%,Diclofenac3%,Edfyubpzgb08%,Bupivacaine2% topicalcream, See Instructions, # 240 Gm, Refills 1, Tot. Refills 1, Maintenance, 1-3 gms (pumps) to affected area 3-4 times a day, 10/27/19 14:52:00 EDT, Compound... Start Date: 10/27/19 Status: Orderedpregabalin 50 mg oral capsule See Instructions, 1 cap PO qAM, 3 caps PO qPM, # 120 capsule, 1 Refills, Maintenance, 11/02/20 9:11:00 EDT, [facility] [id number], 153, cm, 10/28/20 14:26:00 EDT, Height, 85.1,kg, 10/28/20 14:26:00 EDT, Dry Weight Start Date: 11/02/20 Status: OrderedProAir HFA Inhalation, 4 times a day, 0 Refills, Maintenance Start Date: 08/17/11 Status: OrderedSingulair 10 mg oral tablet 10 mg, 1, tablet, By Mouth, Daily before dinner, # 90 tablet, Refills 0, Tot. Refills 0, Maintenance, 10/28/20 17:37:00 EDT, Route to Pharmacy Electronically, [facility] [id number], 153, cm, 10/28/20 14:26:00 EDT, Height, 85.1... [...] deficiency(Confirmed) Active 1pos bronchial challenge /p surgery [id number] 09/2020 Social History Social History Type Response Smoking Status 5-9 cigarettes (between 1/4 to 1/2 pack)/day in last 30 days; Interested in cessation: Yes; Other: was using the gum , didnt like the taste and only worked briefly. Using nicotine lollipops now though from [place].; entered on: 08/17/20 Sex
--- OUTSIDE RECORDS SUMMARY | 2022-01-24 13:57 | XMS_ITS | Continuity of Care Document ---
:1965 Author Organization [facility] Address [address] [place] [address]- Care Team Providers Name Role Phone London BORGES, Kodak Oh Primary Care Physician Encounter [facility] Date(s): 05/02/21 - 06/01/21 [facility] [address] [place], [place] [address] Allergies, Adverse Reactions, Alerts Substance [...] 06/21/11 Recorded 1Result Comment: [facility]: [phone] Note: CDC info [id number] Note: vis given 08/02/06 Medications Adult pull [...] day, # 60 tablet, 5 Refills, [facility], 30, TAKE ONE TABLET BY [...] 1 Refills, Maintenance, 02/24/21 22:43:00 EST, Tablet, [facility] [id number], Partial fill upon patient request if the prescription is for a cooper... Start Date: 02/24/21 Status: Orderedlidocaine 4% topical film 1 patch, Topically, 2 times a day, # 12 each, 0 Refills, Maintenance, 09/28/20 13:53:00 EDT, Film, [facility] [id number], Partial fill upon patient request if the prescription is for a schedule II opioid drug., 1 patch Topical... Start Date: 09/28/20 Status: Orderedloratadine 10 mg oral tablet 10 mg, 1, tablet, By Mouth, Daily, # 30 tablet, Refills 5, Tot. Refills 5, Maintenance, 01/27/21 13:23:00 EST, Route to Pharmacy Electronically, [facility] [id number], Partial fill upon patient request if the prescription is f... Start Date: 01/27/21 Status: OrderedMetoprolol Tartrate 50 mg oral tablet 1 tablet, By Mouth, 2 times a day, DOSE INCREASE, # 180 tablet, 1 Refills, [facility], 153, cm,02/15/21 16:52:00 EST, Height, 89.4, kg, 02/15/21 16:56:00 EST, Dry Weight Start Date: 03/21/21 Status: OrderedNuLYTELY with Flavor Packs oral powder for reconstitution See Instructions, Drink 240mL every 15-20 minutes until first half is gone. Repeat 6 hours prior to procedure., # 4,000 mL, 0 Refills, Maintenance, 10/21/20 12:57:00 EDT, [facility] [id number], Drink 240mL every 15-20 minutes... Start Date: [...] tablet, 0 Refills, Maintenance, 05/19/21 13:18:00 EST, [facility] [id number], 153, cm, 04/29/21 9:27:00 EST, Height, 88.8, kg, 04/29/21 9... Start Date: 05/19/21 Status: OrderedP-5 Ketamine 10%,baclofen2%, cyclobenzaprine2%,Diclofenac3%,Vxjmybylwq53%,Bupivacaine2% topicalcrea P-5 Ketamine 10%,baclofen2%, cyclobenzaprine2%,Diclofenac3%,Fyjbalvfxb96%,Bupivacaine2% topicalcream, See Instructions, # 240 Gm, Refills 1, Tot. Refills 1, Maintenance, 1-3 gms (pumps) to affected area 3-4 times a day, 10/27/19 14:52:00 EDT, Compound... Start Date: 10/27/19 Status: Orderedpregabalin 50 mg oral capsule See Instructions, 1 cap PO qAM and 5 caps PO qHS. Dose increase., # 180 capsule, 1 Refills, Maintenance, 04/18/21 22:56:00 EST, [place], [place] - [id number], 153, cm, 02/15/21 16:52:00 EST, Height, 89.4, [...] 10/28/20 17:37:00 EDT, Route to Pharmacy Electronically, [facility] [id number], 153, cm, 10/28/20 14:26:00 EDT, Height, 85.1... [...] deficiency(Confirmed) Active 1pos bronchial challenge /p surgery [id number] 09/2020 Social History Social History Type Response Smoking Status 5-9 cigarettes (between 1/4 to 1/2 pack)/day in last 30 days; Interested in cessation: Yes; Other: was using the gum , didnt like the taste and only worked briefly. Using nicotine lollipops now though from CT.; entered on: 08/17/20 Sex
--- OUTSIDE RECORDS SUMMARY | 2022-01-24 13:58 | XMS_ITS | Continuity of Care Document ---
:1965 Author Organization [facility] Address [address] [place] [address]- Care Team Providers Name Role Phone Kodak Callahan MD Primary Care Physician Encounter [facility] [place] [place] Date(s): 10/04/20 - 10/11/20 [facility] [address] [place], [place] [address] Encounter Diagnosis Chest wall pain, chronic (Discharge Diagnosis) - 10/04/20 Severe persistent asthma (Discharge Diagnosis) - 10/04/20 Gadiel's thyroiditis (Discharge Diagnosis) - 10/04/20 Attending Physician: Kodak Callahan MD Allergies, Adverse [...] vaccine 06/21/11 Recorded 1Admin Note: CDC info [id number] Note: vis given 08/02/06 Medications Acetaminophen 0 [...] 1 Refills, Maintenance, 09/16/20 14:31:00 EDT, Capsule, [facility] [id number], Partial fill upon patient request if the prescription is for a schedule II... Start Date: 09/16/20 Status: Orderedlidocaine 4% topical film 1 patch, Topically, 2 times a day, # 12 each, 0 Refills, Maintenance, 09/28/20 13:53:00 EDT, Film, [facility] [id number], Partial fill upon patient request if the [...] 1 Refills, Maintenance, 09/14/20 8:52:00 EDT, Tablet, [place], [place] - [id number], Partial fill upon patient request if the [...] pain, # 56 tablet, 0 Refills, Maintenance, 10/08/20 10:09:00 EDT, Tablet, [facility] [id number], Partial fill upon patient request if the prescription is for a sched... Start Date: 10/08/20 Status: OrderedP-5 Ketamine 10%,baclofen2%, cyclobenzaprine2%,Diclofenac3%,Kzgvdnfjsc51%,Bupivacaine2% topicalcrea P-5 Ketamine 10%,baclofen2%, cyclobenzaprine2%,Diclofenac3%,Lvmfuvktnv81%,Bupivacaine2% topicalcream, See Instructions, # 240 Gm, Refills [...] Active 1pos bronchial challenge /p surgery 2019 Diagnosis Diagnosis Type Effective Dates Health Clinical Infor mant Status Service Chest wall pain, Discharge 10/04/20 chronic Diagnosis Severe persistent Discharge 10/04/20 asthma Diagnosis Gadiel's Discharge 10/04/20 thyroiditis Diagnosis Vital Signs Most recent to oldest [Reference Range]: 1 2 Height 153 cm 153 cm (10/04/20 2:34 PM) (10/04/20 2:26 PM) Weight 84.1 kg (10/04/20 2:26 PM) Oxygen Saturation [94-100 %] 98 % 99 % (10/04/20 2:34 PM) (10/04/20 2:26 PM) Pulse Rate [55-90 bpm] 91 bpm 90 bpm *H* (10/04/20 2:26 PM) (10/04/20 2:34 PM) Body Mass Index [18.5-24.99] 35.93 *>HHI* (10/04/20 2:26 PM) Blood Pressure [90-138/55-84 mm Hg] 120/83 mm Hg 148/ 94 mm Hg (10/04/20 2:34 PM) *H* (10/04/20 2:26 PM) Temperature [96.8-100.4 DegF] 98.5 DegF 98.5 DegF (10/04/20 2:34 PM) (10/04/20 2:26 PM) Mode of Delivery (Oxygen) Room air Room air (10/04/20 2:34 PM) (10/04/20 2:26 PM) Blood pressure sites Arm, left (10/04/20 2:26 PM) Temperature Route Temporal Temporal (10/04/20 2:34 PM) (10/04/20 2:26 PM) Dry Weight 84.1 kg (10/04/20 2:26 PM) Weight Obtained Via Standing scale (10/04/20 2:26 PM) Social History Social History Type Response Smoking Status 5-9 cigarettes (between 1/4 to 1/2 pack)/day in last 30 days; Interested in cessation: Yes; Other: was using the gum , didnt like the taste and only worked briefly. Using nicotine lollipops now though from CT.; entered on: 08/17/20 Sex
--- OUTSIDE RECORDS SUMMARY | 2022-01-24 13:58 | XMS_ITS | Continuity of Care Document ---
:1965 Author Organization [facility] Address [address] [place] [address]- Care Team Providers Name Role Phone Kodak Callahan MD Primary Care Physician Encounter [facility] [place] Date(s): 10/14/21 - 11/13/21 [facility] [address] [place], [place] [address] Attending Physician: Admtr, [id number] Admitting Physician: Admtr, Ar8 Referring Physician: Admtr, [...] B adult vaccine 06/21/11 Recorded 1Result Comment: [facility]: [id number] Note: CDC info [id number] Note: vis given 08/02/06 Medications acetaminophen 325 mg oral capsule 2 capsule = 650 mg, By Mouth, Every 4 hours, PRN as needed for fever, # 90 capsule, 0 Refills, Acute07/28/22 22:05:00 EDT, 07/27/21 22:04:00 EDT, Capsule, [facility] [place], [place] - [id number], Partial fill upon patient request if the [...] a day, # 60 tablet, 5 Refills, [facility], 30, TAKE ONE TABLET BY [...] 07/27/21 22:03:00 EDT, Route to Pharmacy Electronically, [place], [place] - [id number], Partial fill upon... Start Date: 07/27/21 Stop [...] DOSE decrease, # 90 tablet, 0 Refills, [facility], 155, cm, 08/16/21 13:46:00 EDT, Height, 90, kg, 07/27/21 21:54:00 EDT, Dry Weight Start Date: 08/23/21 Status: Orderedloratadine 10 mg oral tablet 1, tablet, By Mouth, Daily, # 30 tablet, Refills 5, Route to Pharmacy Electronically, [facility], 155, cm, 07/27/21 21:54:00 EDT, Height, 90, kg, 07/27/21 21:54:00 EDT, Dry Weight Start Date: 08/07/21 Status: OrderedMetoprolol Tartrate 50 mg oral tablet 1 tablet, By Mouth, 2 times a day, DOSE INCREASE, # 180 tablet, 1 Refills, [facility], 153, cm,02/15/21 16:52:00 EST, Height, 89.4, kg, [...] 0 Refills, Maintenance, 11/08/21 8:44:00 EDT, [facility] [id number], taking increased dose due to injury, checked masspat, 11/09/21, 155, cm, 0... Start Date: 11/08/21 Status: OrderedpredniSONE 10 mg oral tablet See Instructions, Take 3 tabs x 3 days, 2 tabs x 3 days, 1 tab x 3 days then stop, # 18 tablet, 0 Refills, Maintenance, 11/10/21 8:21:00 EDT, Tablet, [facility] [id number], Partial fill upon patient request if the prescription... Start Date: 11/10/21 Status: Orderedpregabalin 50 mg oral capsule See Instructions, TAKE TWO CAPSULES BY MOUTH EVERY MORNING AND TAKE 5 CAPSULES BY MOUTH EVERY NIGHT AT BEDTIME checked masspat, # 196 capsule, 1 Refills, Maintenance, 10/25/21 13:12:00 EDT, [facility] [id number], 155, cm, 0... Start Date: 10/25/21 Status: [...] 10/28/20 17:37:00 EDT, Route to Pharmacy Electronically, [place], [place] - [id number], 153, cm, 10/28/20 14:26:00 EDT, Height, 85.1... [...] deficiency(Confirmed) Active 1pos bronchial challenge /p surgery [id number] 09/2020 Social History Social History Type Response Smoking Status 5-9 cigarettes (between 1/4 to 1/2 pack)/day in last 30 days; Interested in cessation: Yes; Other: was using the gum , didnt like the taste and only worked briefly. Using nicotine lollipops now though from CT.; entered on: 08/17/20 Sex Care Team PersonnelName: London BORGES, Kodak Oh Address: [address] [place] [address] Adult & Pediatric Medicine [place], [place] [address]
--- OUTSIDE RECORDS SUMMARY | 2022-01-24 13:58 | XMS_ITS | Continuity of Care Document ---
:1965 Author Organization [facility] Address [address] [place] [address]- Care Team Providers Name Role Phone Kodak Callahan MD Primary Care Physician En[place] [facility] [place] Date(s): 09/14/20 - 10/28/20 [facility] [address] [place], [place] [address] Attending Physician: Kodak Callahan MD Allergies, [...] vaccine 06/21/11 Recorded 1Admin Note: CDC info [id number] Note: vis given 08/02/06 Medications Acetaminophen 0 [...] 5 Refills, Maintenance, 10/20/20 10:23:00 EDT, Tablet, [place], [place] - [id number], Partial fill upon patient request if the [...] 1 Refills, Maintenance, 09/16/20 14:31:00 EDT, Capsule, [facility] [id number], Partial fill upon patient request if the prescription is for a schedule II... Start Date: 09/16/20 Status: Orderedlidocaine 4% topical film 1 patch, Topically, 2 times a day, # 12 each, 0 Refills, Maintenance, 09/28/20 13:53:00 EDT, Film, [facility] [id number], Partial fill upon patient request if the [...] 1 Refills, Maintenance, 09/14/20 8:52:00 EDT, Tablet, [facility] [id number], Partial fill upon patient request if the prescription is for a schedule II op... Start Date: 09/14/20 Status: OrderedNuLYTELY with Flavor Packs oral powder for reconstitution See Instructions, Drink 240mL every 15-20 minutes until first half is gone. Repeat 6 hours prior to procedure., # 4,000 mL, 0 Refills, Maintenance, 10/21/20 12:57:00 EDT, [facility] [id number], Drink 240mL every 15-20 minutes... Start Date: [...] 0 Refills, Maintenance, 10/08/20 10:09:00 EDT, Tablet, [facility] [id number], Partial fill upon patient request if the prescription is for a sched... Start Date: 10/08/20 Status: OrderedP-5 Ketamine 10%,baclofen2%, cyclobenzaprine2%,Diclofenac3%,Zobnryfihv13%,Bupivacaine2% topicalcrea P-5 Ketamine 10%,baclofen2%, cyclobenzaprine2%,Diclofenac3%,Extxhxysha80%,Bupivacaine2% topicalcream, See Instructions, # 240 Gm, Refills [...] 10/28/20 17:37:00 EDT, Route to Pharmacy Electronically, [place], [place] - [id number], 153, cm, 10/28/20 14:26:00 EDT, Height, 85.1... [...] deficiency(Confirmed) Active 1pos bronchial challenge /p surgery [id number] 09/2020 Social History Social History Type Response Smoking Status 5-9 cigarettes (between 1/4 to 1/2 pack)/day in last 30 days; Interested in cessation: Yes; Other: was using the gum , didnt like the taste and only worked briefly. Using nicotine lollipops now though from CT.; entered on: 08/17/20 Sex
--- OUTSIDE RECORDS SUMMARY | 2022-01-24 13:58 | XMS_ITS | Continuity of Care Document ---
:1965 Author Organization [facility] Address [address] [place] [address]- Care Team Providers Name Role Phone Kodak Callahan MD Primary Care Physician Encounter [facility] [place] Date(s): 10/27/20 - 11/26/20 [facility] [address] [place], [place] [address] Allergies, Adverse Reactions, Alerts Substance Reaction [...] vaccine 06/21/11 Recorded 1Admin Note: CDC info [id number] Note: vis given 08/02/06 Medications Acetaminophen 0 [...] 5 Refills, Maintenance, 10/20/20 10:23:00 EDT, Tablet, [place], [place] - [id number], Partial fill upon patient request if the [...] arrival to [facility] if needed., # 2 tablet, [...] 1 Refills, Maintenance, 11/18/20 12:51:00 EDT, Tablet, [place], [place] - [id number], Partial fill upon patient request if the prescriptio... Start Date: 11/18/20 Status: Orderedlidocaine 4% topical film 1 patch, Topically, 2 times a day, # 12 each, 0 Refills, Maintenance, 09/28/20 13:53:00 EDT, Film, [place], [place] - [id number], Partial fill upon patient request if the [...] 1 Refills, Maintenance, 09/14/20 8:52:00 EDT, Tablet, [facility] [id number], Partial fill upon patient request if the prescription is for a schedule II op... Start Date: 09/14/20 Status: OrderedNuLYTELY with Flavor Packs oral powder for reconstitution See Instructions, Drink 240mL every 15-20 minutes until first half is gone. Repeat 6 hours prior to procedure., # 4,000 mL, 0 Refills, Maintenance, 10/21/20 12:57:00 EDT, [facility] [id number], Drink 240mL every 15-20 minutes... Start Date: [...] 0 Refills, Maintenance, 11/03/20 7:21:00 EDT, Tablet, [facility] [id number], Partial fill upon patient request if the prescription is for a schedu... Start Date: 11/03/20 Status: OrderedP-5 Ketamine 10%,baclofen2%, cyclobenzaprine2%,Diclofenac3%,Hesohapffv28%,Bupivacaine2% topicalcrea P-5 Ketamine 10%,baclofen2%, cyclobenzaprine2%,Diclofenac3%,Jllsuybxzd96%,Bupivacaine2% topicalcream, See Instructions, # 240 Gm, Refills 1, Tot. Refills 1, Maintenance, 1-3 gms (pumps) to affected area 3-4 times a day, 10/27/19 14:52:00 EDT, Compound... Start Date: 10/27/19 Status: Orderedpregabalin 50 mg oral capsule See Instructions, 1 cap PO qAM, 3 caps PO qPM, # 120 capsule, 1 Refills, Maintenance, 11/02/20 9:11:00 EDT, [facility] [id number], 153, cm, 10/28/20 14:26:00 EDT, Height, 85.1,kg, 10/28/20 14:26:00 EDT, Dry Weight Start Date: 11/02/20 Status: OrderedProAir HFA Inhalation, 4 times a day, 0 Refills, Maintenance Start Date: 08/17/11 Status: OrderedSingulair 10 mg oral tablet 10 mg, 1, tablet, By Mouth, Daily before dinner, # 90 tablet, Refills 0, Tot. Refills 0, Maintenance, 10/28/20 17:37:00 EDT, Route to Pharmacy Electronically, [facility] [id number], 153, cm, 10/28/20 14:26:00 EDT, Height, 85.1... [...] Vitamin D deficiency(Confirmed) Active 1pos bronchial challenge 12024r/p surgery [id number] 09/2020 Social History Social History Type Response Smoking Status 5-9 cigarettes (between 1/4 to 1/2 pack)/day in last 30 days; Interested in cessation: Yes; Other: was using the gum , didnt like the taste and only worked briefly. Using nicotine lollipops now though from CT.; entered on: 08/17/20 Sex
--- OUTSIDE RECORDS SUMMARY | 2022-01-24 13:58 | XMS_ITS | Continuity of Care Document ---
:1965 Author Organization [facility] Address [address] [place] [address]- Care Team Providers Name Role Phone London BORGES, Kodak Oh Primary Care Physician Encounter [facility] [place] Date(s): 02/15/21 - 03/17/21 [facility] [address] [place], [place] [address] Attending Physician: AdmCarlin blandon Admitting Physician: Admtr, Ar8 Referring Physician: Admtr, [...] adult vaccine 06/21/11 Recorded 1Result Comment: [facility] [place]: [id number] Note: CDC info [id number] Note: vis given 08/02/06 Medications Acetaminophen 0 [...] 5 Refills, Maintenance, 10/20/20 10:23:00 EDT, Tablet, [place], [place] - [id number], Partial fill upon patient request if the [...] May repeat x 1 on arrival to [facility] if needed., # 2 tablet, [...] 1 Refills, Maintenance, 02/24/21 22:43:00 EST, Tablet, [facility] [id number], Partial fill upon patient request if the prescription is for a cooper... Start Date: 02/24/21 Status: Orderedlidocaine 4% topical film 1 patch, Topically, 2 times a day, # 12 each, 0 Refills, Maintenance, 09/28/20 13:53:00 EDT, Film, [facility] [id number], Partial fill upon patient request if the prescription is for a schedule II opioid drug., 1 patch Topical... Start Date: 09/28/20 Status: Orderedloratadine 10 mg oral tablet 10 mg, 1, tablet, By Mouth, Daily, # 30 tablet, Refills 5, Tot. Refills 5, Maintenance, 01/27/21 13:23:00 EST, Route to Pharmacy Electronically, [facility] [id number], Partial fill upon patient request if the prescription is f... Start Date: 01/27/21 Status: OrderedMetoprolol Tartrate 50 mg oral tablet 1 tablet = 50 mg, By Mouth, 2 times a day, dose increase, # 180 tablet, 1 Refills, Maintenance, 09/14/20 8:52:00 EDT, Tablet, [facility] [id number], Partial fill upon patient request if the prescription is for a schedule II op... Start Date: 09/14/20 Status: OrderedNuLYTELY with Flavor Packs oral powder for reconstitution See Instructions, Drink 240mL every 15-20 minutes until first half is gone. Repeat 6 hours prior to procedure., # 4,000 mL, 0 Refills, Maintenance, 10/21/20 12:57:00 EDT, [facility] [id number], Drink 240mL every 15-20 minutes... Start Date: [...] PAIN, # 56 tablet, 0 Refills, Maintenance, 02/28/21 13:24:00 EST, [facility] [id number], 153, cm, 02/15/21 16:52:00 EST, Height, 89.4, kg, 02/15/21... Start Date: 02/28/21 Status: OrderedP-5 Ketamine 10%,baclofen2%, cyclobenzaprine2%,Diclofenac3%,Lvhjpgvght47%,Bupivacaine2% topicalcrea P-5 Ketamine 10%,baclofen2%, cyclobenzaprine2%,Diclofenac3%,Cwqsopcmpj41%,Bupivacaine2% topicalcream, See Instructions, # 240 Gm, Refills 1, Tot. Refills 1, Maintenance, 1-3 gms (pumps) to affected area 3-4 times a day, 10/27/19 14:52:00 EDT, Compound... Start Date: 10/27/19 Status: Orderedpregabalin 50 mg oral capsule See Instructions, TAKE ONE CAPSULE BY MOUTH EVERY MORNING AND TAKE THREE CAPSULES BY MOUTH EVERY EVENING, # 120 capsule, 0 Refills, Maintenance, 01/19/21 8:26:00 EDT, [facility], [facility] [id number], 153, cm, 11/19/20 8:43:00 EDT, [facility]... Start Date: 01/19/21 Status: Orderedpregabalin 50 mg oral capsule See Instructions, 1 cap PO qAM, 4 caps PO qHS. Dose increase. Please fill when patient next due., # 150 capsule, 1 Refills, Maintenance, 02/01/21 9:05:00 EST, [facility], [facility] [id number], 153, cm, 02/01/21 8:58:00 EST, Height, 85.1,... Start Date: 02/01/21 Status: OrderedProAir HFA Inhalation, 4 times a day, 0 Refills, Maintenance Start Date: 08/17/11 Status: OrderedSingulair 10 mg oral tablet 10 mg, 1, tablet, By Mouth, Daily before dinner, # 90 tablet, Refills 0, Tot. Refills 0, Maintenance, 10/28/20 17:37:00 EDT, Route to Pharmacy Electronically, [facility] [id number], 153, cm, 10/28/20 14:26:00 EDT, Height, 85.1... [...] Vitamin D deficiency(Confirmed) Active 1pos bronchial challenge 86748w/p surgery [id number] 09/2020 Social History Social History Type Response Smoking Status 5-9 cigarettes (between 1/4 to 1/2 pack)/day in last 30 days; Interested in cessation: Yes; Other: was using the gum , didnt like the taste and only worked briefly. Using nicotine lollipops now though from CT.; entered on: 08/17/20 Sex
--- OUTSIDE RECORDS SUMMARY | 2022-01-24 13:58 | XMS_ITS | Continuity of Care Document ---
:1965 Author Organization [facility] Address [address] [place] [address]- Care Team Providers Name Role Phone Sarah Sanderson Primary Care Physician Encounter [facility] Date(s): 03/29/20 - 04/28/[address] [address]- Allergies, Adverse Reactions, Alerts Substance Reaction Severity Status doxycycline1 hives Active Spiriva Active traMADol swelling and hives Active 1hives Immunizations Given and Recorded Vaccine Date Status Refusal Reason Fluzone (oldterm)1 01/05/14 Given tetanus/diphtheria/pertussis, acel(Tdap)2 02/07/13 Given influenza virus vaccine, inactivated 01/01/13 Given 1Admin Note: CDC info [id number] Note: vis given 08/02/06 Medications Acetaminophen 0 [...] 11:11:30 EDT, Inhaler, Route to Pharmacy Electronically, [id number], [facility]/pharmacy#[id number] Start Date: 05/27/18 Stop Date: 02/21/19 [...] Start Date: 01/05/14 Status: OrderedP-5 Ketamine 10%,baclofen2%, cyclobenzaprine2%,Diclofenac3%,Axiucohqak56%,Bupivacaine2% topicalcrea P-5 Ketamine 10%,baclofen2%, cyclobenzaprine2%,Diclofenac3%,Gjasxgbsyi55%,Bupivacaine2% topicalcream, See Instructions, # 240 Gm, Refills [...]
--- OUTSIDE RECORDS SUMMARY | 2022-01-24 13:58 | XMS_ITS | Continuity of Care Document ---
:1965 Author Organization [facility] Address [address] [place] [address]- Care Team Providers Name Role Phone Sarah Sanderson Primary Care Physician Encounter [facility] [place] Date(s): 11/26/19 - 12/31/19 [facility] [address] [place] [address] Attending Physician: Jose Hardy DO Admitting Physician: Jose Hardy DO Allergies, Adverse Reactions, Alerts Substance Reaction Severity Status doxycycline1 hives Active Spiriva Active traMADol swelling and hives Active 1hives Immunizations Given and Recorded Vaccine Date Status Refusal Reason Fluzone (oldterm)1 01/05/14 Given tetanus/diphtheria/pertussis, acel(Tdap)2 02/07/13 Given influenza virus vaccine, inactivated 01/01/13 Given 1Admin Note: CDC info [id number] Note: vis given 08/02/06 Medications Acetaminophen 0 [...] 11:11:30 EDT, Inhaler, Route to Pharmacy Electronically, [id number], [facility]/pharmacy#[id number] Start Date: 05/27/18 Stop [...] Start Date: 01/05/14 Status: OrderedP-5 Ketamine 10%,baclofen2%, cyclobenzaprine2%,Diclofenac3%,Impyosjkmu07%,Bupivacaine2% topicalcrea P-5 Ketamine 10%,baclofen2%, cyclobenzaprine2%,Diclofenac3%,Piexxegmji22%,Bupivacaine2% topicalcream, See Instructions, # 240 Gm, Refills [...]
--- OUTSIDE RECORDS SUMMARY | 2022-01-24 13:58 | XMS_ITS | Continuity of Care Document ---
:1965 Author Organization [facility] Address [address] [place] [address]- Care Team Providers Name Role Phone [place] BORGES, [employer] Oh Primary Care Physician Encounter [facility] Date(s): 09/17/20 - 10/17/20 [facility] [address] [place], [place] [address] Allergies, Adverse Reactions, Alerts Substance Reaction Severity [...] vaccine 06/21/11 Recorded 1Admin Note: CDC info [id number] Note: vis given 08/02/06 Medications Acetaminophen 0 [...] 1 Refills, Maintenance, 09/16/20 14:31:00 EDT, Capsule, [facility] [id number], Partial fill upon patient request if the prescription is for a schedule II... Start Date: 09/16/20 Status: Orderedlidocaine 4% topical film 1 patch, Topically, 2 times a day, # 12 each, 0 Refills, Maintenance, 09/28/20 13:53:00 EDT, Film, [facility] [id number], Partial fill upon patient request if the [...] 1 Refills, Maintenance, 09/14/20 8:52:00 EDT, Tablet, [facility] [id number], Partial fill upon patient request if the [...] 0 Refills, Maintenance, 10/08/20 10:09:00 EDT, Tablet, [place], [place] - [phone], Partial fill upon patient request if the prescription is for a sched... Start Date: 10/08/20 Status: OrderedP-5 Ketamine 10%,baclofen2%, cyclobenzaprine2%,Diclofenac3%,Othiiqggip23%,Bupivacaine2% topicalcrea P-5 Ketamine 10%,baclofen2%, cyclobenzaprine2%,Diclofenac3%,Qrjcexhfyz30%,Bupivacaine2% topicalcream, See Instructions, # 240 Gm, Refills [...] deficiency(Confirmed) Active 1pos bronchial challenge /p surgery [id number] 09/2020 Social History Social History Type Response Smoking Status 5-9 cigarettes (between 1/4 to 1/2 pack)/day in last 30 days; Interested in cessation: Yes; Other: was using the gum , didnt like the taste and only worked briefly. Using nicotine lollipops now though from [place].; entered on: 08/17/20 Sex
--- OUTSIDE RECORDS SUMMARY | 2022-01-24 13:58 | XMS_ITS | Continuity of Care Document ---
:1965 Author Organization [facility] Address [address] [place] [id number]- Care Team Providers Name Role Phone Sarah Sanderson Primary Care Physician En[place] [facility] Date(s): 01/09/20 - 02/29/20 [facility] [address] [place] [id number] Attending Physician: Brittani Dutton MD Admitting Physician: Brittani Dutton MD Allergies, Adverse Reactions, Alerts Substance Reaction Severity Status doxycycline1 hives Active Spiriva Active traMADol swelling and hives Active 1hives Immunizations Given and Recorded Vaccine Date Status Refusal Reason Fluzone (oldterm)1 01/05/14 Given tetanus/diphtheria/pertussis, acel(Tdap)2 02/07/13 Given influenza virus vaccine, inactivated 01/01/13 Given 1Admin Note: CDC info [id number] Note: vis given 08/02/06 Medications Acetaminophen 0 [...] 11:11:30 EDT, Inhaler, Route to Pharmacy Electronically, [id number], [facility]/pharmacy#[id number] Start Date: 05/27/18 Stop Date: 02/21/19 Status: [...] Start Date: 01/05/14 Status: OrderedP-5 Ketamine 10%,baclofen2%, cyclobenzaprine2%,Diclofenac3%,Fefzfhddod60%,Bupivacaine2% topicalcrea P-5 Ketamine 10%,baclofen2%, cyclobenzaprine2%,Diclofenac3%,Baukajebog63%,Bupivacaine2% topicalcream, See Instructions, # 240 Gm, Refills [...]
--- OUTSIDE RECORDS SUMMARY | 2022-01-24 13:58 | XMS_ITS ---
:1965 External Reference #:[id number] Author Care Team Providers Name Role Phone [facility] Referring Provider [phone] Allergies None recorded. Medications Name Status Start Date Stop Date ? ? acetaminophen 325 mg tablet Active ? Not available TAKE 2 TABLETS BY MOUTH EVERY 4 HOURS NEEDED FOR FEVER albuterol sulfate 2.5 mg/3 mL (0.083 %) solution for nebulizatio n Active ? Not available INHALE THE CONTENT OF 1 VIAL (3mls) VIA NEBULIZER machine EVERY 6 HOURS NEEDED FOR SHORTNESS OF BREATH OR FOR WHEEZING albuterol sulfate HFA 90 mcg/actuation aerosol inhaler Active ? Not available atorvastatin 40 mg tablet Active ? Not av ailable TAKE ONE TABLET BY MOUTH EVERY EVENING azithromycin 500 mg tablet Active ? Not a vailable TAKE ONE TABLET BY MOUTH DAILY Banophen 25 mg capsule Active ? Not avail able TAKE TWO CAPSULES BY MOUTH EVERY 6 HOURS NEEDED FOR ANXIETY Breo Ellipta 200 mcg-25 mcg/dose powder for inhalation Active ? Not available INHALE 1 PUFF BY MOUTH INTO THE lungs O NCE DAILY. rinse mouth and throat after use calcium carbonate 600 mg-vitamin D3 10 mcg (400 unit) tablet Act tracy ? Not available TAKE ONE TABLET BY MOUTH two (2) times a day cephalexin 500 mg capsule Active ? Not av ailable TAKE ONE CAPSULE BY MOUTH EVERY 6 HOURS clonidine HCl 0.1 mg tablet Active ? Not available TAKE ONE TABLET BY MOUTH EVERY 8 HOURS NEEDED (BP>160/100) dexamethasone 4 mg tablet Active ? Not av ailable TAKE ONE TABLET BY MOUTH two (2) times a day diazepam 5 mg tablet Active ? Not availab le TAKE ONE TABLET BY MOUTH 1 HOUR prior t o PROCEDURE. MAY REPEAT ONCE ON arrival TO [facility] IF needed fluconazole 150 mg tablet Active ? Not av ailable TAKE 1 TABLET BY MOUTH ONCE. TAKE secon d tablet ONLY IF SYMPTOMS DO NOT resolve 3 DAYS AFTER first tablet hydralazine 25 mg tablet Active ? Not paul ilable TAKE ONE TABLET BY MOUTH EVERY 8 HOURS NEEDED FOR FOR BLOOD PRESSURE >160/100 hydrochlorothiazide 25 mg tablet Active ? Not available TAKE ONE TABLET BY MOUTH ONCE DAILY ibuprofen 200 mg tablet Active ? Not avai lable TAKE 2 TABLETS BY MOUTH EVERY 4 HOURS NEEDED FOR PAIN Incruse Ellipta 62.5 mcg/actuation powder for inhalation Active ? Not available INHALE 1 PUFF BY MOUTH INTO THE lungs ONCE DAILY ipratropium bromide 0.02 % solution for inhalation Active ? Not available INHALE THE CONTENT OF 1 ampule VIA NEBULIZER machine 4 (FOUR) T IMES DAILY ketorolac 30 mg/mL (1 mL) injection solution Active ? Not available Inject 1 mL as needed by intramuscular route. levothyroxine 150 mcg tablet Active ? Not available TAKE ONE TABLET BY MOUTH DAILY BEFORE BREAKFAST. DOSE decrease levothyroxine 175 mcg tablet Active ? Not available TAKE ONE TABLET BY MOUTH DAILY IN THE MORNING levothyroxine 200 mcg tablet Active ? Not available TAKE ONE TABLET BY MOUTH DAILY IN THE MORNING loratadine 10 mg tablet Active ? Not avai lable TAKE ONE TABLET BY MOUTH DAILY methocarbamol 750 mg tablet Active ? Not available TAKE ONE TABLET BY MOUTH EVERY 6 HOURS NEEDED FOR MUSCLE spa sm metoprolol tartrate 50 mg tablet Active ? Not available TAKE ONE TABLET BY MOUTH two (2) times a day. DOSE INCREASE montelukast 10 mg tablet Active ? Not paul ilable TAKE ONE TABLET BY MOUTH DAILY BEFORE DINNER naproxen 500 mg tablet Active ? Not avail able TAKE 1 TABLET BY MOUTH two (2) times a day NEEDED FOR PAIN Narcan 4 mg/actuation nasal spray Active ? Not available Place [address] [place] into the nostril(s) as needed for opioid reversal (Overdose) omega-3 acid ethyl esters 1 gram capsule Active ? Not available TAKE TWO CAPSULES BY MOUTH 2 (two) times a day omeprazole 20 mg capsule,delayed release Active ? Not available TAKE ONE CAPSULE BY MOUTH DAILY oxycodone 10 mg tablet Active ? Not avail able TAKE 1 TABLET BY MOUTH EVERY MORNING, 1 /2 TABLET BY MOUTH EVERY afternoon, 1 TABLET EVERY EVENING oxycodone-acetaminophen 5 mg-325 mg tablet Active ? Not available TAKE ONE TABLET BY MOUTH EVERY 6 HOURS NEEDED FOR SEVERE GREGORY N peg-electrolyte solution 420 gram oral solution Active ? Not available Drink 240mL every 15-20 minutes until f irst half is gone. Repeat 6 hours prior to procedure. polyethylene glycol 3350 17 gram/dose oral powder Active ? Not available DISSOLVE 17gm IN WATER AND DRINK two (2 ) times a day. titrate TO 1 TO 2 smooth bowel movements DAILY without straining prednisone 20 mg tablet Active ? Not avai lable TAKE 2 TABLETS BY MOUTH ONCE DAILY pregabalin 50 mg capsule Active ? Not paul ilable TAKE TWO CAPSULES BY MOUTH EVERY MORNIN G AND TAKE 5 CAPSULES BY MOUTH EVERY NIGHT AT BEDTIME sulfamethoxazole 800 mg-trimethoprim 160 mg tablet Active ? Not available TAKE ONE TABLET BY MOUTH two (2) times a day FOR 7 DAYS. DRINK plenty OF fluids Problems None recorded. Procedures None recorded. Results Lab Results None recorded. Past Encounters 05/23/2021 Girma Pratt MD: [address] [place] [address], Ph. 05/12/2021 Productive Cough Margarita Worthington MD: [address] [facility] [address], Ph. Social History None recorded. Vaccine List None recorded. Plan of Care Reminders Provider Appointments None recorded. ? ? Lab None recorded. ? ? Referral None recorded. ? ? Procedures None recorded. ? ? Surgeries None recorded. ? ? Imaging None recorded. ? ? Vitals 05/23/2021 06:12PM [facility] Blood Pressure 124/82 mm[Hg] 05/12/2021 01:14PM [facility] Blood Pressure 121/93 mm[Hg]
== END 2022-01-24 16:28 | disposition left against medical advice (07) ==
LOC: HO.ED 13:54
PROVIDERS: Emergency Provider Emergency Medicine; PCP Obstetrics & Gynecology
DX: R05.9 Cough, unspecified (principal); R06.02 Shortness of breath
CPT/HCPCS: 71046; 80048; 85025; 87502; 99281; 99283